=== PATIENT | male | born 1970 | race Caucasian/White ===

== ENCOUNTER 2018-05-12 11:49 | Inpatient (IN) ==
--- NOTE | 2018-05-12 13:18 | Emergency Department Note ---
Disposition Clinical Impression: Wound of foot Disposition: Admitted As Inpatient Condition: Good Referrals: NONE,PCP [Primary Care Provider] - Forms: ED Satisfaction Letter Time of Disposition: 17:08 General Adult HPI - General Chief complaint: ED Extremity Problem,Nontraumatic Stated complaint: Right foot infection Time Seen by Provider: 05/12/18 13:15 Source: patient Mode of arrival: ambulatory Limitations: no limitations Nursing Notes Reviewed: Yes Vital Signs Reviewed: Yes - History of Present Illness HPI Narrative: Male patient presenting to emergency department with a nonhealing lesion to the dorsal aspect of his right foot. Patient states this is been going on since Friday that is 3 days ago. He was seen at urgent care for this. Initially started as swelling to his right foot. He does have a history of diabetes that is not managed. He does not have a primary care physician. This is type 2 diabetes. He was placed on Bactrim and Keflex at the urgent care. He has been taking this as prescribed. States the swelling has went down however the area to the top of his foot is now black. He denies any fevers or chills. States he otherwise feels well. Has no history of trauma or bites to this area. He stat es that there were some pustules that showed up and now the area started turning black. He does have a series of pictures on his phone. He denies any fevers chills or coughs or colds. He has been using washclothes with warm water and eposom salts to the area. Pain Scale: 3 - Related Data Home Medications Medication Instructions Recorded Confirmed Acid Slot Floor Attendant 05/04/18 Ibuprofen 05/04/18 Sulfamethoxazole/Trimeth DS 1 tab PO BID 05/12/18 05/12/18 [Bactrim DS] Previous Rx's Medication Instructions Recorded Cephalexin [Keflex] 500 mg PO QID #40 capsule 05/04/18 Allergies Allergy/AdvReac Type Severity Reaction Status Date / Time No Known Allergies Allergy Verified 05/12/18 14:38 All systems ED: reviewed and negative except as stated. Review of Systems: As Per HPI Constitutional: Denies: fever, chills ENT ED: Denies: congestion Cardiovascular: Denies: chest pain, palpitations, syncope Respiratory: Denies: cough, dyspnea Gastrointestinal: Denies: abdominal pain, nausea, vomiting, diarrhea, hematemesis, melena Genitourinary: Denies: urgency, dysuria, frequency, hematuria Musculoskeletal: Denies: back pain, neck pain Integumentary: Reports: lesions (to right foot. Pt reports that the swelling is getting better, however it is now black). Denies: rash Neurological: Denies: headache, weakness Past Medical History - Past Medical History Attestation: Yes The following information was validated with the patient. Source: patient Medical history: Reports: diabetes, other Psychiatric history: Reports: no psych history - Social History Smoking Status: Current every day smoker Smokeless Tobacco Status: No Alcohol use: Reports: none Drug use: Reports: none Physical Exam - General Limitations: no limitations General appearance: alert, in no apparent distress - Head Head exam: atraumatic, normocephalic, normal inspection - Eye Eye exam: Present: normal appearance, PERRL, EOMI - ENT ENT exam: normal exam, normal oropharynx, mucous membranes moist - Neck Neck exam: Present: normal inspection, full ROM, trachea midline - Chest Chest inspection: Present: normal inspection, symmetric chest wall rise - Respiratory Respiratory exam: Present: normal lung sounds bilaterally. Absent: respiratory distress, accessory muscle use - Cardiovascular Cardiovascular exam: Present: regular rate, normal rhythm, normal heart sounds - Abdominal Exam Abdominal exam: Present: soft, Non-Tender. Absent: tenderness, distention, guarding, rebound, rigidity, organomegaly - Expanded Upper Extremity Exam Shoulder exam: Present: normal inspection, full ROM Arm exam: Present: normal inspection, full ROM Elbow exam: Present: normal inspection, full ROM Forearm/Wrist exam: Present: normal inspection, full ROM Hand exam: Present: normal inspection, full ROM Vascular exam: Normal: capillary refill, radial pulse - Expanded Lower Extremity Exam Hip/Pelvis exam: Present: normal inspection, full ROM Upper leg exam: Present: normal inspection, full ROM Knee exam: Present: normal inspection, full ROM Lower leg exam: Present: normal inspection, full ROM Ankle exam: Present: normal inspection, full ROM Foot/toe exam: Present: full ROM, other (Eschar region to the dorsal aspect of his right foot. Cellulitic appearance to a larger area extending up to his ankle. Has a sharp demarcation at the MCPs of his toes. Toes to have a delayed capillary refill however they are not cold. They are warm. Do not have a la appearance.) Neurovascular/Tendon exam: Absent: motor deficit, sensory deficit, tendon deficit - Neurological Exam Neurological exam: Present: alert, oriented X3 - Psychiatric Psychiatric exam: Present: normal affect, normal mood - Skin Skin exam: Present: warm, dry Course Course Narrative: Patient with a nonhealing wound to the dorsal aspect of the right foot with eschar material who has not responded well to by mouth antibiotics and has a history of diabetes presenting to the emergency department. CT does show some subcutaneous air however this does not appear to track on the fascial plane. We will admit patient to the hospital on IV antibiotics. We did cover him for possible Pseudomonas with Zosyn and vancomycin. I spoke with the hospitalist. The patient is agreeable to admission at this time. Vitals are stable. - Consultations Consultation #1: Dr Matias accepted Pt in stable condition. Time: 17:03 Vital Signs Temperature 98.7 F 05/12/18 11:58 Pulse Rate 98 05/12/18 11:58 Respiratory Rate 18 05/12/18 11:58 Blood Pressure 136/92 05/12/18 11:58 O2 Sat by Pulse Oximetry 95 05/12/18 11:58 Temperature 98.7 F 05/12/18 11:58 Pulse Rate 76 05/12/18 16:26 Respiratory Rate 16 05/12/18 16:26 Blood Pressure 120/89 05/12/18 16:26 O2 Sat by Pulse Oximetry 97 05/12/18 16:26 Oxygen Delivery Oxygen Delivery Room Air Medical Decision Making - Medical Records Medical records reviewed: Yes I reviewed the patient's medical records. - Lab Data Lab results reviewed: Yes I reviewed the patient's lab results. Result diagrams: 05/12/18 13:52 05/12/18 13:52 Lab Results 05/12/18 05/12/18 05/12/18 Range/Units 13:52 13:52 13:52 WBC 10.8 (4.3-11.1) K/mcL RBC 5.98 H (4.19-5.50) M/mcL Hgb 16.8 (12.9-16.9) g/dL Hct 49.8 (37.5-50.1) % MCV 83.3 (83.0-100.0) fL MCH 28.1 (28.0-33.3) pg MCHC 33.7 (31.6-35.5) g/dL RDW 11.5 (11.5-14.5) % Plt Count 378 (140-400) K/mcL MPV 10.0 (9.4-12.4) fL Immature Gran % 0.9 (0-4) % Seg Neutrophils % 69.5 % Lymphocytes % 19.4 % Monocytes % 7.4 % Eosinophils % 1.9 % Basophils % 0.9 % Neutrophils # 7.5 (1.6-8.9) K/mcL Lymphocytes # 2.1 (0.6-4.6) K/mcL Monocytes # 0.8 (0.0-1.3) K/mcL Eosinophils # 0.2 (0.0-0.6) K/mcL Basophils # 0.1 (0.0-0.2) K/mcL PT 12.9 H (9.4-12.1) Seconds INR 1.1 APTT 38.7 H (26.0-36.0) Seconds Sodium 136 (136-145) mEq/L Potassium 4.2 (3.5-5.1) mEq/L Chloride 100 (98-107) mEq/L Carbon Dioxide 24 (23-29) mEq/L BUN 10 (6-20) mg/dL Creatinine 0.73 (0.70-1.30) mg/dL Est GFR ( Amer) > 60 (> 60) Est GFR (Non-Af Amer) > 60 (> 60) BUN/Creatinine Ratio 14 (6-26) Glucose 254 H (70-105) mg/dL Calculated Osmolality 290 (280-300) Lactic Acid (0.5-2.2) mmol/L Calcium 9.8 (8.6-10.3) mg/dL Phosphorus 3.2 (2.7-4.5) mg/dL Magnesium 2.2 (1.6-2.6) mg/dL Total Bilirubin 0.4 (0.3-1.0) mg/dL Direct Bilirubin 0.1 (0.0-0.2) mg/dL Indirect Bilirubin 0.3 (0.0-1.2) mg/dL AST 13 (13-39) Units/L ALT 19 (7-52) Units/L Alkaline Phosphatase 127 H (34-104) Units/L Troponin I < 0.03 (< 0.04) ng/mL Serum Total Protein 8.9 (6.4-8.9) g/dL Albumin 4.8 (3.5-5.7) g/dL Globulin 4.1 H (2.4-3.5) g/dL Albumin/Globulin Ratio 1.2 (1.1-2.2) Urine Color (Yellow) Urine Clarity (Clear) Urine pH (5.0-8.0) pH Units Ur Specific Stem (1.010-1.025) Urine Protein (Neg-Trace) mg/dL Urine Glucose (UA) (Normal) mg/dL Urine Ketones (Negative) mg/dL Urine Blood (Negative) Urine Nitrite (Negative) Urine Bilirubin (Negative) Urine Urobilinogen (Normal) mg/dL Ur Leukocyte Esterase (Negative) Ur Culture Indicated? (NO) 05/12/18 05/12/18 Range/Units 13:52 14:05 WBC (4.3-11.1) K/mcL RBC (4.19-5.50) M/mcL Hgb (12.9-16.9) g/dL Hct (37.5-50.1) % MCV (83.0-100.0) fL MCH (28.0-33.3) pg MCHC (31.6-35.5) g/dL RDW (11.5-14.5) % Plt Count (140-400) K/mcL MPV (9.4-12.4) fL Immature Gran % (0-4) % Seg Neutrophils % % Lymphocytes % % Monocytes % % Eosinophils % % Basophils % % Neutrophils # (1.6-8.9) K/mcL Lymphocytes # (0.6-4.6) K/mcL Monocytes # (0.0-1.3) K/mcL Eosinophils # (0.0-0.6) K/mcL Basophils # (0.0-0.2) K/mcL PT (9.4-12.1) Seconds INR APTT (26.0-36.0) Seconds Sodium (136-145) mEq/L Potassium (3.5-5.1) mEq/L Chloride (98-107) mEq/L Carbon Dioxide (23-29) mEq/L BUN (6-20) mg/dL Creatinine (0.70-1.30) mg/dL Est GFR ( Amer) (> 60) Est GFR (Non-Af Amer) (> 60) BUN/Creatinine Ratio (6-26) Glucose (70-105) mg/dL Calculated Osmolality (280-300) Lactic Acid 1.5 (0.5-2.2) mmol/L Calcium (8.6-10.3) mg/dL Phosphorus (2.7-4.5) mg/dL Magnesium (1.6-2.6) mg/dL Total Bilirubin (0.3-1.0) mg/dL Direct Bilirubin (0.0-0.2) mg/dL Indirect Bilirubin (0.0-1.2) mg/dL AST (13-39) Units/L ALT (7-52) Units/L Alkaline Phosphatase (34-104) Units/L Troponin I (< 0.04) ng/mL Serum Total Protein (6.4-8.9) g/dL Albumin (3.5-5.7) g/dL Globulin (2.4-3.5) g/dL Albumin/Globulin Ratio (1.1-2.2) Urine Color Yellow (Yellow) Urine Clarity Clear (Clear) Urine pH 6.5 (5.0-8.0) pH Units Ur Specific Stem 1.020 (1.010-1.025) Urine Protein Negative (Neg-Trace) mg/dL Urine Glucose (UA) 500 H (Normal) mg/dL Urine Ketones Negative (Negative) mg/dL Urine Blood Negative (Negative) Urine Nitrite Negative (Negative) Urine Bilirubin Negative (Negative) Urine Urobilinogen 2.0 H (Normal) mg/dL Ur Leukocyte Esterase Negative (Negative) Ur Culture Indicated? NO (NO) - Radiology Data Radiology results reviewed: Yes I reviewed the patient's radiology results. Foot CT 05/12/18 13:48 IMPRESSION: Dorsal soft tissue swelling with a small amount of subcutaneous air. No focal drainable fluid collection. No definite osteomyelitis. D/ / 05/12/2018 17:02:21 Adrian Baum MD / lgray Interpreting Provider: Adrian Baum MD - EKG Data EKG #1 EKG attestation: Yes I reviewed and interpreted this EKG. EKG results narrative: Normal sinus rhythm at a rate 88. AL interval is 150. QRS duration is 81. QT is 362. QTC is 438. No signs of acute ischemia. No signs of WPW or Onqmf-Auxtfbuuv-Jcnhd syndrome no previous EKG to compare to. Attestation Statement - Attestation Attestation: I, Lowell Donohue, examined this patient and my medical decision-making was reviewed with the ADMINISTRATOR OF HOME HEALTH/PA/Advanced Practice Nurse/Resident Physician. I agree with the documented findings, disposition and treatment plan as described except to the extent set forth below. 47-year-old male presents emergency Department with concerns of infection to the right dorsum foot. Patient states he had severe swelling and erythema to the right foot and ankle. He was seen at an urgent care and given Bactrim and Keflex. He spent using warm washcloths with Epsom salts to help "bring out the infection". He has had some improvement of his symptoms however now he has a area of ulceration and blackened skin on the dorsum of the foot. He denies fever, chills, nausea, vomiting. He has a history of previous diabetes mellitus prior to losing 100 pounds. We will obtain laboratory evaluation and imaging of the right foot however patient will likely require admission to the hospital further care and evaluation of his dorsum right foot and possible debridement.
[2018-05-12] MEDS ORDERED: Piperacillin/Tazobactam 3.375 GM in Water for inj. (sterile) 20 ML 20 ML IVP ONE (13:25)
[2018-05-12] MEDS ORDERED: 0.9 % Sodium Chloride 1,000 ML IVC ONE (13:25)
[2018-05-12] MEDS ORDERED: Isovue-370 500 ML INFUS..BTL IV ONE (13:48)
[2018-05-12 14:08] LABS: Basophils # 0.1 K/mcL (0.0-0.2); Basophils % 0.9 %; Eosinophils # 0.2 K/mcL (0.0-0.6); Eosinophils % 1.9 %; Hematocrit 49.8 % (37.5-50.1); Hemoglobin 16.8 g/dL (12.9-16.9); Immature Granulocytes % 0.9 % (0-4); Lymphocytes # 2.1 K/mcL (0.6-4.6); Lymphocytes % 19.4 %; Mean Corpuscular HGB Conc 33.7 g/dL (31.6-35.5); Mean Corpuscular Hemoglobin 28.1 pg (28.0-33.3); Mean Corpuscular Volume 83.3 fL (83.0-100.0); Monocytes # 0.8 K/mcL (0.0-1.3); Monocytes % 7.4 %; Neutrophils # 7.5 K/mcL (1.6-8.9); Platelet Count 378 K/mcL (140-400); Red Blood Count 5.98 M/mcL (4.19-5.50); Red Cell Distribution Width 11.5 % (11.5-14.5); Segmented Neutrophils % 69.5 %
[2018-05-12 14:14] LABS: Bilirubin,Urine Negative (Negative); Blood,Urine Negative (Negative); Clarity,Urine Clear (Clear); Color,Urine Yellow (Yellow); Glucose,Urine (UA) 500 mg/dL (Normal); Ketones,Urine Negative (Negative); Leukocyte Esterase,Urine Negative (Negative); Nitrite,Urine Negative (Negative); PH,Urine 6.5 pH Units (5.0-8.0); Protein,Urine Negative (Neg-Trace)
[2018-05-12 14:17] LABS: INR 1.1; Prothrombin Time 12.9 Seconds (9.4-12.1)
[2018-05-12 14:19] LABS: Activated Partial Thrombo Time 38.7 Seconds (26.0-36.0)
[2018-05-12 14:29] LABS: Troponin I < 0.03 ng/mL (< 0.04)
[2018-05-12 14:57] LABS: Alanine Aminotransferase 19 Units/L (7-52); Albumin 4.8 g/dL (3.5-5.7); Albumin/Globulin Ratio 1.2 (1.1-2.2); Alkaline Phosphatase 127 Units/L (34-104); Aspartate Amino Transferase 13 Units/L (13-39); BUN/Creatinine Ratio 14 (6-26); Bilirubin,Direct 0.1 mg/dL (0.0-0.2); Bilirubin,Indirect 0.3 mg/dL (0.0-1.2); Bilirubin,Total 0.4 mg/dL (0.3-1.0); Blood Urea Nitrogen 10 mg/dL (6-20); Calcium 9.8 mg/dL (8.6-10.3); Carbon Dioxide 24 mEq/L (23-29); Chloride 100 mEq/L (98-107); Globulin 4.1 g/dL (2.4-3.5); Glucose 254 mg/dL (70-105); Magnesium 2.2 mg/dL (1.6-2.6); Osmolality,Calculated 290 (280-300); Phosphorous 3.2 mg/dL (2.7-4.5); Potassium 4.2 mEq/L (3.5-5.1); Sodium 136 mEq/L (136-145); Total Protein 8.9 g/dL (6.4-8.9); eGFR For Non-African Americans > 60 (> 60)
[2018-05-12] MEDS ORDERED: Naloxone 0.4 MG/ML INJ IVP PRN (17:30)
--- NOTE | 2018-05-12 17:30 | Internal Med History&Physical ---
Date of Encounter: 05/12/18 Time of Encounter: 17:28 Internal Medicine - H&P: HPI Chief complaint: Foot infection History of present illness: Mr. Trevizo is a 47 year old male who presented with a nonhealing lesion to the dorsal aspect of his right foot that failed outpatient antibiotics with Bactrim and Keflex that he was prescribed at urgent care. He does have a history of diabetes but he is not on any meds. He denies any fevers chills. CT scan was ordered and pending. The patient was admitted for further evaluation. Past Med Surg Social Fam HX - Past Medical History Medical history: diabetes, other Additional medical history: MARSA Psychiatric history: no psych history - Past Surgical History Additional surgical history: thumb elbow - Social History Smoking Status: Current every day smoker Smokeless Tobacco Status: No Alcohol use: none Drug use: none Internal Medicine - H&P: Meds Cephalexin [Keflex] 500 mg PO QID #40 capsule 05/04/18 [Rx] Ibuprofen [Ibu-200] 400 mg PO Q6H PRN 05/04/18 [History] Ranitidine HCl [Acid Specialty Department Supervisor] 150 mg PO DAILY PRN 05/04/18 [History] Sulfamethoxazole/Trimeth DS [Bactrim DS] 1 tab PO BID 05/12/18 [History] Allergy/AdvReac Type Severity Reaction Status Date / Time No Known Allergies Allergy Verified 05/12/18 14:38 All Systems PM: A 10-system review of systems was performed and is negative for pertinent findings except as documented above in the HPI. - Constitutional Constitutional: no chills, no fever(s), no night sweats - Cardiovascular Cardiovascular ROS IM: no chest pain, no diaphoresis, no dyspnea, no lightheadedness, no palpitations, no syncope - Respiratory Respiratory: no cough, no dyspnea, no wheezing, no excessive phlegm production - Gastrointestinal Gastrointestinal: no abdominal pain, no diarrhea, no hematemesis, no hematochezia, no melena, no nausea, no vomiting - Neurological Neurological ROS: no confusion, no convulsions, no focal weakness, no numbness, no tingling, no tremor(s) - Constitutional Vitals: Temp Pulse Resp BP Pulse Ox 98.7 F 76 16 120/89 97 05/12/18 11:58 05/12/18 16:26 05/12/18 16:26 05/12/18 16:26 05/12/18 16:26 General appearance: Present: A&O X 3 Exam: awake - Head Head exam: Present: atraumatic, normocephalic - Neck Neck exam general surgery: Present: supple, trachea midline. Absent: lymphadenopathy - Respiratory Respiratory exam: Present: CTAB. Absent: accessory muscle use, rales, rhonchi, wheezes - Cardiovascular Cardiovascular exam: Present: RRR, +S1, +S2. Absent: diastolic murmur, gallop, rubs, systolic murmur - GI/Abdominal GI/Abdominal exam: Present: normal bowel sounds, soft, no peritoneal signs. Absent: distended, tenderness - Extremities Exam Extremities exam: Present: warm, radial pulses palpable and symmetrical. Absent : calf tenderness, cyanotic, pedal edema Internal Med - H&P Results - Labs CBC & Chem 7: 05/18/18 05:05 05/18/18 05:05 Labs: Short CBC 05/12/18 Range/Units 13:52 WBC 10.8 (4.3-11.1) K/mcL Hgb 16.8 (12.9-16.9) g/dL Hct 49.8 (37.5-50.1) % Plt Count 378 (140-400) K/mcL Neutrophils # 7.5 (1.6-8.9) K/mcL BMP 05/12/18 13:52 Sodium 136 Potassium 4.2 Chloride 100 Carbon Dioxide 24 BUN 10 Creatinine 0.73 Glucose 254 H Calcium 9.8 Cardiac Enzymes 05/12/18 Range/Units 13:52 Troponin I < 0.03 (< 0.04) ng/mL Liver Function 05/12/18 Range/Units 13:52 Total Bilirubin 0.4 (0.3-1.0) mg/dL Direct Bilirubin 0.1 (0.0-0.2) mg/dL AST 13 (13-39) Units/L ALT 19 (7-52) Units/L Alkaline Phosphatase 127 H (34-104) Units/L Albumin 4.8 (3.5-5.7) g/dL Urine 05/12/18 Range/Units 14:05 Urine Color Yellow (Yellow) Urine Clarity Clear (Clear) Urine pH 6.5 (5.0-8.0) pH Units Ur Specific [place] 1.020 (1.010-1.025) Urine Protein Negative (Neg-Trace) mg/dL Urine Glucose (UA) 500 H (Normal) mg/dL - Impressions ITS Impressions Foot CT 05/12/18 13:48 IMPRESSION: Dorsal soft tissue swelling with a small amount of subcutaneous air. No focal drainable fluid collection. No definite osteomyelitis. D/ / 05/12/2018 17:02:21 Adrian Baum MD / lgray Interpreting Provider: Adrian Baum MD - Assessment and plan (1) Wound of foot Current Visit: Yes Status: Acute Assessment and plan: -Blood cx x 2 -CBCD, BMP in AM -Tylenol 650 mg PO q 4-6 hr PRN pain/fever -Home meds -Heparin 5000 U SQ BID (2) Diabetes mellitus Current Visit: Yes Status: Chronic Assessment and plan: We will obtain HGB A1C, starting insulin sliding scale. Qualifiers: Diabetes mellitus type: type 2 Diabetes mellitus shelter insulin use: without regional intermodal truck driver use Diabetes mellitus complication status: with skin complications Diabetes mellitus complication detail: with foot ulcer Qualified Code(s): E11.621 - Type 2 diabetes mellitus with foot ulcer; L97.509 - Non-pressure chronic ulcer of other part of unspecified foot with unspecified severity - Time Spent With Patient Total time spent is greater than 50% in coordination of care (as documented) at patient's floor/unit and/or counseling patient:
[2018-05-12 18:19] LABS: INR 1.2; Prothrombin Time 13.2 Seconds (9.4-12.1)
[2018-05-12 18:29] LABS: Chol/HDL Ratio 4.8 (0-4.9)
[2018-05-12] MEDS: 0.9 % Sodium Chloride 1,000 ML IVC SCH (19:48)
[2018-05-12] MEDS: *HR* Heparin 5,000 UNIT/ML VIAL SQ SCH (19:48)
[2018-05-13] MEDS: Piperacillin/Tazobactam 3.375 GM in 0.9 % Sodium Chloride Mini Bag 100 ML IVPB SCH ×3 (01:46→16:33)
[2018-05-13] MEDS: 0.9 % Sodium Chloride 1,000 ML IVC SCH (04:03)
[2018-05-13] MEDS: *HR* Heparin 5,000 UNIT/ML VIAL SQ SCH ×2 (04:50→18:21)
[2018-05-13 06:01] LABS: Basophils # 0.1 K/mcL (0.0-0.2); Eosinophils # 0.2 K/mcL (0.0-0.6); Eosinophils % 2.4 %; Hematocrit 41.4 % (37.5-50.1); Immature Granulocytes % 1.2 % (0-4); Lymphocytes # 2.9 K/mcL (0.6-4.6); Mean Corpuscular HGB Conc 33.8 g/dL (31.6-35.5); Mean Corpuscular Hemoglobin 28.2 pg (28.0-33.3); Mean Corpuscular Volume 83.3 fL (83.0-100.0); Monocytes # 0.8 K/mcL (0.0-1.3); Monocytes % 8.4 %; Neutrophils # 5.3 K/mcL (1.6-8.9); Platelet Count 349 K/mcL (140-400); Red Blood Count 4.97 M/mcL (4.19-5.50); Red Cell Distribution Width 11.6 % (11.5-14.5)
[2018-05-13 06:21] LABS: Alanine Aminotransferase 16 Units/L (7-52); Albumin 3.7 g/dL (3.5-5.7); Albumin/Globulin Ratio 1.2 (1.1-2.2); Alkaline Phosphatase 102 Units/L (34-104); Aspartate Amino Transferase 10 Units/L (13-39); BUN/Creatinine Ratio 13 (6-26); Bilirubin,Total 0.3 mg/dL (0.3-1.0); Blood Urea Nitrogen 9 mg/dL (6-20); Calcium 8.7 mg/dL (8.6-10.3); Carbon Dioxide 27 mEq/L (23-29); Chloride 100 mEq/L (98-107); Globulin 3.1 g/dL (2.4-3.5); Glucose 320 mg/dL (70-105); Magnesium 1.9 mg/dL (1.6-2.6); Osmolality,Calculated 289 (280-300); Phosphorous 3.2 mg/dL (2.7-4.5); Potassium 4.2 mEq/L (3.5-5.1); Sodium 134 mEq/L (136-145); Total Protein 6.8 g/dL (6.4-8.9); eGFR For Non-African Americans > 60 (> 60)
[2018-05-13 08:23] LABS: Estimated Average Glucose 237 mg/dl; Hemoglobin A1C 9.9 %
--- NOTE | 2018-05-13 09:15 | Electrocardiograph Report ---
[facility] [employer] [facility] Test Date: 2018-05-12 Pat Name: Chris Trevizo Department: [id number] Room: [facility] Gender: M Architectural Draftsman: : 1970 Requested By: Radha Chatterjee Order Number: [id number] Reading MD: Andi Betancourt Measurements Intervals [place] Rate: 88 P: 43 [place]: 150 QRS: 38 QRSD: 81 T: 52 QT: 362 QTc: 438 Interpretive Statements Sinus rhythm Electronically Signed On 05-13-2018 9:13:47 EDT by Andi Betancourt
[2018-05-13] MEDS ORDERED: Dextrose Gel 15 GM/37.5 ML TUBE PO PRN ×2 (09:26)
[2018-05-13] MEDS ORDERED: D5% in Water 1,000 ML IVC PRN (09:26)
[2018-05-13] MEDS ORDERED: *HR* Dextrose 50 % in Water (Syg) 50 ML SYRINGE IVP PRN (09:26)
--- NOTE | 2018-05-13 09:29 | Internal Med Progress Note ---
<Serenity Medina Santy - Last Filed: 05/13/18 13:52> Hospitalist Progress Note - Encounter Date of Encounter: 05/13/18 Time of Encounter: 09:21 - Subjective Interval History: 47M with PMH uncontrolled DM presenting with non-healing ulcer of dorsal aspect of R Foot, CT showed some SubQ air but not in fascial plane, admitted for IV Abx after failure of outpt mgmt. On Vanc and zosyn. WBC 10.8 yesterday, 9.4 today. Followed by podiatry that plans to take him to the OR for I&D with debridement tomorrow, NPO after breakfast tomorrow. Glucose 320, A1c 9.9. Start low dose SQ insulin, diabetes education, monitor sugars, adjust insulin regiment as necessary. Needs referral for PCP at D/C. - Exam Vitals: Temp Pulse Resp BP Pulse Ox 97.8 F 76 18 128/76 98 05/13/18 06:31 05/13/18 06:31 05/13/18 06:31 05/13/18 06:31 05/13/18 06:31 Exam: General: A&O x 3. No acute distress. Well developed, well nourished Obese male Head: atraumatic, normocephalic. ENT: No conjunctival injection, no scleral icterus. PERRLA. EOMI. Oropharynx non- erythematous. mucous membranes moist. Neuro: No focal deficits, no speech deficit, no facial droop, mentating well. Pulm: Lungs CTAB A/P. No wheezes, rales, ronchi. Cardio: RRR no m/r/g. Chest not tender to palpation. Abd: Soft, non-distended. Normoactive bowel sounds. Non-tender to palpation. No guarding. Non rigid. Extremities:Rt foot bandaged recently by podiatry, left extremity without w ounds, edema, erythema Skin: warm, dry, intact. No rashes with exception of right foot wound Psych: Appropriate mood and affect. Answers questions appropriately. Cooperative with exam. - Assessment and Plan (1) Wound of foot Current Visit: Yes Status: Acute Assessment and Plan: Followed by podiatry, pods plans to take him to the OR to do I&D with mikael woodard tomorrow - on Vanc & Zosyn now (2) Diabetes mellitus Current Visit: Yes Status: Acute Assessment and Plan: Pt was dx "several years ago" and lost 100lbs so then thought he was no longer DM and has not been checking sugars - a1c 9.9 - start low dose correction schedule, adjust for tight glucose control to keep sugars 100-150 - diabetic education - referral for outpatient PCP to establish and manage care DVT Prophylaxis: heparin 5000u SQ Q12 - Time Spent with Patient Total time spent is greater than 50% in coordination of care (as documented) at patient's floor/unit and/or counseling patient: less than 15 minutes Plan of Care Discussed with: family Internal Medicine: Result - Labs CBC & Chem 7: 05/13/18 05:26 05/13/18 05:26 Labs: Short CBC 05/12/18 05/13/18 Range/Units 13:52 05:26 WBC 10.8 9.4 (4.3-11.1) K/mcL Hgb 16.8 14.0 D (12.9-16.9) g/dL Hct 49.8 41.4 (37.5-50.1) % Plt Count 378 349 (140-400) K/mcL Neutrophils # 7.5 5.3 (1.6-8.9) K/mcL BMP 05/12/18 05/13/18 13:52 05:26 Sodium 136 134 L Potassium 4.2 4.2 Chloride 100 100 Carbon Dioxide 24 27 BUN 10 9 Creatinine 0.73 0.68 L Glucose 254 H 320 H Calcium 9.8 8.7 Cardiac Enzymes 05/12/18 Range/Units 13:52 Troponin I < 0.03 (< 0.04) ng/mL Liver Function 05/12/18 05/13/18 Range/Units 13:52 05:26 Total Bilirubin 0.4 0.3 (0.3-1.0) mg/dL Direct Bilirubin 0.1 (0.0-0.2) mg/dL AST 13 10 L (13-39) Units/L ALT 19 16 (7-52) Units/L Alkaline Phosphatase 127 H 102 (34-104) Units/L Albumin 4.8 3.7 (3.5-5.7) g/dL Urine 05/12/18 Range/Units 14:05 Urine Color Yellow (Yellow) Urine Clarity Clear (Clear) Urine pH 6.5 (5.0-8.0) pH Units Ur Specific [place] 1.020 (1.010-1.025) Urine Protein Negative (Neg-Trace) mg/dL Urine Glucose (UA) 500 H (Normal) mg/dL - ABG Interpretation ABG results: PT/INR, D-dimer PT 13.2 Seconds (9.4-12.1) H 05/12/18 17:58 - Impressions Impressions Foot CT 05/12/18 13:48 IMPRESSION: Dorsal soft tissue swelling with a small amount of subcutaneous air. No focal drainable fluid collection. No definite osteomyelitis. D/ / 05/12/2018 17:02:21 Adrian Baum MD / [email or web address] Interpreting Provider: Adrian Baum MD Consult Discharge Plan - Plan Referrals: NONE,PCP [Primary Care Provider] - <Praneeth Barker - Last Filed: 05/13/18 18:36> Hospitalist Progress Note - Exam Vitals: Temp Pulse Resp BP Pulse Ox 98.2 F 75 16 133/89 95 05/13/18 16:12 05/13/18 16:12 05/13/18 16:12 05/13/18 16:12 05/13/18 16:12 - Assessment and Plan (1) Cellulitis of right foot Current Visit: Yes Status: Acute (2) Wound of foot Current Visit: Yes Status: Acute (3) Diabetes mellitus Current Visit: Yes Status: Acute - Time Spent with Patient Total time spent is greater than 50% in coordination of care (as documented) at patient's floor/unit and/or counseling patient: Internal Medicine: Result - Labs CBC & Chem 7: 05/13/18 05:26 05/13/18 05:26 Labs: Short CBC 05/13/18 Range/Units 05:26 WBC 9.4 (4.3-11.1) K/mcL Hgb 14.0 D (12.9-16.9) g/dL Hct 41.4 (37.5-50.1) % Plt Count 349 (140-400) K/mcL Neutrophils # 5.3 (1.6-8.9) K/mcL BMP 05/13/18 05:26 Sodium 134 L Potassium 4.2 Chloride 100 Carbon Dioxide 27 BUN 9 Creatinine 0.68 L Glucose 320 H Calcium 8.7 Liver Function 05/13/18 Range/Units 05:26 Total Bilirubin 0.3 (0.3-1.0) mg/dL AST 10 L (13-39) Units/L ALT 16 (7-52) Units/L Alkaline Phosphatase 102 (34-104) Units/L Albumin 3.7 (3.5-5.7) g/dL - ABG Interpretation ABG results: PT/INR, D-dimer PT 13.2 Seconds (9.4-12.1) H 05/12/18 17:58 - Attending Attestation I examined this patient and my medical decision-making was reviewed with the Resident Physician on 05/13/18. I agree with the documented findings, disposition and treatment plan as described except to the extent set forth below. Mr Trevizo is currently admitted for cellulitis R foot. He remains moderate to high risk due to potential for worsening clinical status. Mr Trevizo is doing OK at this time. No fever or chills. No CP or SOB. No pain in his foot. Exam alert Comfortable Mucus membranes dry Heart reg No wheeze abd soft R foot with dark eschar and erythema I/P 1. Cellulitis R foot - IV abx, podiatry 2. DM Further diagnoses and plan as above. <Serenity Medina - Last Filed: 05/13/18 13:52> (2) Diabetes mellitus Qualifiers: Diabetes mellitus type: type 2 Diabetes mellitus fpc insulin use: without fpc use Diabetes mellitus complication status: with unspecified complications Qualified Code(s): E11.8 - Type 2 diabetes mellitus with unspecified complications; L97.509 - Non-pressure chronic ulcer of other part of unspecified foot with unspecified severity <Praneeth Barker - Last Filed: 05/13/18 18:36> (3) Diabetes mellitus Qualifiers: Diabetes mellitus type: type 2 Diabetes mellitus exterminator helper termite insulin use: without exterminator helper termite use Diabetes mellitus complication status: with skin complications Diabetes mellitus complication detail: with foot ulcer Qualified Code(s): E11.621 - Type 2 diabetes mellitus with foot ulcer; L97.509 - Non-pre ssure chronic ulcer of other part of unspecified foot with unspecified severity
--- NOTE | 2018-05-13 10:17 | Podiatry Consult Note ---
Date of Encounter: 05/13/18 Time of Encounter: 09:58 Assessment and Plan (1) Wound of foot Current visit: Yes Status: Acute Large wound noted to right dorsal foot Measuring 2 inches wide by 3 inches long, eschar noted, erythema noted to outlying wound bed, edema 2/4 to right malleolus and pedal area. Covered with Betadine, Adaptic, dry gauze, and Kerlix. Secured with paper tape. Plan to go to the OR for I&D of wound tomorrow 05/14/18 Nothing by mouth after breakfast 05/14/18 Surgery consent on chart (2) Diabetes mellitus Current visit: Yes Status: Acute HGB A1c 9.9 Recommend tight glycemic control Primary to manage Qualifiers: Diabetes mellitus type: type 2 Diabetes mellitus medical laboratory technical officer insulin use: without medical laboratory technical officer use Diabetes mellitus complication status: with unspecified complications Qualified Code(s): E11.8 - Type 2 diabetes mellitus with unspecified complications History of Present Illness HPI: Mr. Trevizo is a 47 year old male who presented last evening 05/12/18, to ED for right foot infection. PMH type 2 diabetes mellitus, chronic back/leg pain, lumbar DDD L4-5/S1, carpal tunnel, bilateral shoulder capsulitis, positive smoker 1/2 PPD. Denies alcohol or drug abuse. Patient denies any vascular or cardiac history. Denies any recent falls. Patient reports losing 100 pounds and therefore believed he was no longer diabetic. Due to this patient has not been checking blood glucose levels at home. Patient does not follow was primary care physician. Mr. Trevizo is a 47-year-old male who presented to urgent care on 05/04/18 for right foot pain, redness, and swelling. Patient was at that time diagnosed with cellulitis and given Bactrim, Keflex, and Diclophenac. Patient reports on 05/03/18 he woke up and put his shoe on in his foot and ankle were swollen. Denies any wounds or openings at that time. States going to . Patient reports placing Prid, a drawing salve, on foot to draw out any infection on 05/03. Reports white circles underneath skin, which he believed to be infection. Reports after placing drawing salve on skin he then began to place hot compresses with Epsom salt over area. Reports blood and clear fluid seeping from wound area. Reports placing compresses with Epsom salts 2-3 times a day. He then began to notice his skin was peeling. 3 days ago he began to notice luda kened areas and worsening redness. He denies fevers, chills, N/V/D. He denies pain or tingling. Reports numbness to right hallux. Denies any recent trauma to the area. Past Med Surg Social Fam HX - Past Medical History Medical history: diabetes, other Additional medical history: MARSA Psychiatric history: no psych history - Past Surgical History Additional surgical history: thumb elbow - Social History Smoking Status: Current every day smoker Packs per day: 1/2 Smokeless Tobacco Status: No Alcohol use: none Drug use: none Medications and Allergies Cephalexin [Keflex] 500 mg PO QID #40 capsule 05/04/18 [Rx] Ibuprofen [Ibu-200] 400 mg PO Q6H PRN 05/04/18 [History] Ranitidine HCl [Acid Straight Line Press Setter] 150 mg PO DAILY PRN 05/04/18 [History] Sulfamethoxazole/Trimeth DS [Bactrim DS] 1 tab PO BID 05/12/18 [History] Allergy/AdvReac Type Severity Reaction Status Date / Time No Known Allergies Allergy Verified 05/12/18 14:38 All Systems Reviewed: The remainder of the systems were reviewed and are negative Review of systems: Constitutional: Denies fever denies chills admits weight loss Cardiovascular: denies chest pain, denies shortness of breath Endocrine: Denies fatigue, Admits diabetes, Denies thyroid issues Musculoskeletal: Admits edema, Denies recent falls, Denies difficulty walking, Denies calf pain Neurologic: Admits numbness/tingling, Denies seizures, Denies weakness Integumentary: Admits warmth, Denies rash, Denies bruising - Constitutional Constitutional: no frequent falls - Cardiovascular Cardiovascular: leg edema, pedal edema, no chest pain, no dyspnea, no irregular heart rhythm, no leg ulcers - Respiratory Respiratory: no cough - Musculoskeletal Musculoskeletal: as per HPI, back pain, no abnormal gait Physical Exam - Constitutional Vitals: Temp Pulse Resp BP Pulse Ox 97.8 F 76 18 128/76 98 05/13/18 06:31 05/13/18 06:31 05/13/18 06:31 05/13/18 06:31 05/13/18 06:31 Exam: Constitiutional: Alert and oriented x 3. Vascular: 2/4 DP/PT bilaterally, CFT <3 sec to all digits, warm to warm from tibia to toes bilaterally, 2/4 edema noted to right pedal and ankle area. Neurologic: Positive light touch and pinprick test, normal plantar response, Normal position sense dorsiflexion/plantar flexion Dermatologic: Erythema noted to the dorsal aspect of foot, wound measuring 2" wide x 3" long, compressible with eschar noted. Musculoskeletal: 5/5 muscle strength and normal tone bilaterally. Results - Labs Result Diagrams: 05/13/18 05:26 05/13/18 05:26 Labs: Abnormal lab results PT 13.2 Seconds (9.4-12.1) H 05/12/18 17:58 Sodium 134 mEq/L (136-145) L 05/13/18 05:26 Creatinine 0.68 mg/dL (0.70-1.30) L 05/13/18 05:26 Glucose 320 mg/dL (70-105) H 05/13/18 05:26 Hemoglobin A1c 9.9 % (-5.6) H 05/13/18 05:26 AST 10 Units/L (13-39) L 05/13/18 05:26 HDL Cholesterol 26 mg/dL (40-59) L 05/12/18 17:58 Urine Glucose (UA) 500 mg/dL (Normal) H 05/12/18 14:05 Urine Urobilinogen 2.0 mg/dL (Normal) H 05/12/18 14:05 H & H 05/12/18 05/13/18 Range/Units 13:52 05:26 Hgb 16.8 14.0 D (12.9-16.9) g/dL Hct 49.8 41.4 (37.5-50.1) % All other labs normal. Consult Discharge Plan - Plan Referrals: NONE,PCP [Primary Care Provider] -
[2018-05-13] MEDS: Insulin LISPRO 300 UNITS/3 ML VIAL SQ SCH ×5 (14:36→21:15)
[2018-05-13] MEDS ORDERED: Ibuprofen 400 MG TABLET PO PRN (18:29)
[2018-05-13] MEDS: Insulin DETEMIR 100 UNIT/ML X5UNITS SQ SCH (20:20)
[2018-05-14] MEDS: Piperacillin/Tazobactam 3.375 GM in 0.9 % Sodium Chloride Mini Bag 100 ML IVPB SCH ×4 (00:16→23:37)
[2018-05-14 03:34] LABS: Basophils # 0.1 K/mcL (0.0-0.2); Basophils % 0.9 %; Eosinophils # 0.2 K/mcL (0.0-0.6); Eosinophils % 2.2 %; Hematocrit 40.2 % (37.5-50.1); Hemoglobin 13.9 g/dL (12.9-16.9); Immature Granulocytes % 0.8 % (0-4); Lymphocytes # 2.7 K/mcL (0.6-4.6); Lymphocytes % 28.4 %; Mean Corpuscular HGB Conc 34.6 g/dL (31.6-35.5); Mean Corpuscular Hemoglobin 28.5 pg (28.0-33.3); Mean Corpuscular Volume 82.4 fL (83.0-100.0); Mean Platelet Volume 9.9 fL (9.4-12.4); Monocytes # 0.6 K/mcL (0.0-1.3); Monocytes % 6.6 %; Neutrophils # 5.8 K/mcL (1.6-8.9); Platelet Count 351 K/mcL (140-400); Red Blood Count 4.88 M/mcL (4.19-5.50); Red Cell Distribution Width 11.7 % (11.5-14.5); Segmented Neutrophils % 61.1 %
[2018-05-14 03:41] LABS: INR 1.2; Prothrombin Time 13.3 Seconds (9.4-12.1)
[2018-05-14 03:53] LABS: BUN/Creatinine Ratio 11 (6-26); Blood Urea Nitrogen 7 mg/dL (6-20); Calcium 8.8 mg/dL (8.6-10.3); Carbon Dioxide 27 mEq/L (23-29); Chloride 102 mEq/L (98-107); Glucose 247 mg/dL (70-105); Osmolality,Calculated 290 (280-300); Potassium 3.6 mEq/L (3.5-5.1); Sodium 137 mEq/L (136-145); eGFR For Non-African Americans > 60 (> 60)
[2018-05-14] MEDS: *HR* Heparin 5,000 UNIT/ML VIAL SQ SCH ×2 (07:13→16:21)
[2018-05-14] MEDS: Insulin LISPRO 300 UNITS/3 ML VIAL SQ SCH ×4 (07:14→20:27)
--- NOTE | 2018-05-14 07:25 | Internal Med Progress Note ---
<Serenity Medina - Last Filed: 05/14/18 12:41> Hospitalist Progress Note - Encounter Date of Encounter: 05/14/18 Time of Encounter: 07:18 - Subjective Interval History: 47M with PMH uncontrolled DM presenting with non-healing ulcer of dorsal aspect of R Foot, CT showed some SubQ air but not in fascial plane, admitted for IV Abx after failure of outpt mgmt. On Vanc and zosyn. WBC 10.8 at admit, 9.6 today. Followed by podiatry that plans to take him to the OR for I&D with debridement today, NPO after breakfast. Added 10mg Levemir and low dose insulin yesterday, glucose yesterday 382-197. A1c at admit 9.9. Diabetes education, monitor sugars, adjust insulin regiment as necessary. Needs referral for PCP at D/C. - Exam Vitals: Temp Pulse Resp BP Pulse Ox 97.7 F 78 18 134/91 99 05/14/18 06:38 05/14/18 06:38 05/14/18 06:38 05/14/18 06:38 05/14/18 06:38 Exam: General: A&O x 3. No acute distress. Well developed, well nourished Obese male Head: atraumatic, normocephalic. ENT: No conjunctival injection, no scleral icterus. PERRLA. EOMI. Oropharynx non- erythematous. mucous membranes moist. Neuro: No focal deficits, no speech deficit, no facial droop, mentating well. Pulm: Lungs CTAB A/P. No wheezes, rales, ronchi. Cardio: RRR no m/r/g. Chest not tender to palpation. Abd: Soft, non-distended. Normoactive bowel sounds. Non-tender to palpation. No guarding. Non rigid. Extremities:Rt foot bandaged recently by podiatry, left extremity without wounds, edema, erythema Skin: warm, dry, intact. No rashes with exception of right foot wound Psych: Appropriate mood and affect. Answers questions appropriately. Cooperative with exam. - Assessment and Plan (1) Wound of foot Current Visit: Yes Status: Acute Assessment and Plan: -On Vanc/Zosyn - Podiatry following, plans to take him to OR for I&D with debridement today - goal glucose 100-150 (2) Diabetes mellitus Current Visit: Yes Status: Acute Assessment and Plan: -Pt was dx T2DM several years ago, then lost 100lbs and thought he did not have it anymore - A1c 9.9 at admit - Added low dose insulin and 10mg Levemir BID yesterday, sugars remain >150, change to medium dose correction today - diabetes education - referral for PCP at D/C DVT Prophylaxis: heparin 5000u SQ Q12 - Time Spent with Patient Total time spent is greater than 50% in coordination of care (as documented) at patient's floor/unit and/or counseling patient: less than 15 minutes Plan of Care Discussed with: patient Internal Medicine: Result - Labs CBC & Chem 7: 05/14/18 03:05 05/14/18 03:05 Labs: Short CBC 05/14/18 Range/Units 03:05 WBC 9.6 (4.3-11.1) K/mcL Hgb 13.9 (12.9-16.9) g/dL Hct 40.2 (37.5-50.1) % Plt Count 351 (140-400) K/mcL Neutrophils # 5.8 (1.6-8.9) K/mcL BMP 05/14/18 03:05 Sodium 137 Potassium 3.6 Chloride 102 Carbon Dioxide 27 BUN 7 Creatinine 0.62 L Glucose 247 H Calcium 8.8 - ABG Interpretation ABG results: PT/INR, D-dimer PT 13.3 Seconds (9.4-12.1) H 05/14/18 03:05 Consult Discharge Plan - Plan Referrals: NONE,PCP [Primary Care Provider] - <Praneeth Barker - Last Filed: 05/14/18 18:20> Hospitalist Progress Note - Exam Vitals: Temp Pulse Resp BP Pulse Ox 97.9 F 71 18 133/85 97 05/14/18 14:41 05/14/18 14:41 05/14/18 14:41 05/14/18 14:41 05/14/18 14:41 - Assessment and Plan (1) Cellulitis of right foot Current Visit: Yes Status: Acute (2) Wound of foot Current Visit: Yes Status: Acute (3) Diabetes mellitus Current Visit: Yes Status: Acute - Time Spent with Patient Total time spent is greater than 50% in coordination of care (as documented) at patient's floor/unit and/or counseling patient: Internal Medicine: Result - Labs CBC & Chem 7: 05/14/18 03:05 05/14/18 03:05 Labs: Short CBC 05/14/18 Range/Units 03:05 WBC 9.6 (4.3-11.1) K/mcL Hgb 13.9 (12.9-16.9) g/dL Hct 40.2 (37.5-50.1) % Plt Count 351 (140-400) K/mcL Neutrophils # 5.8 (1.6-8.9) K/mcL BMP 05/14/18 03:05 Sodium 137 Potassium 3.6 Chloride 102 Carbon Dioxide 27 BUN 7 Creatinine 0.62 L Glucose 247 H Calcium 8.8 - ABG Interpretation ABG results: PT/INR, D-dimer PT 13.3 Seconds (9.4-12.1) H 05/14/18 03:05 - Impressions Impressions Foot MRI 05/14/18 08:16 IMPRESSION: Negative study for osteomyelitis. Irregular elongated focal fluid collection in the superficial aspect of the dorsal foot with some internal gas compatible with abscess as above. Associated cellulitis to the dorsal foot. Mild muscle edema without significant enhancement to intrinsic musculature of the foot, predominantly the intraosseous muscles about the 2nd through 4th metatarsals. This may be reactive in nature or reflect nonspecific myositis. Early denervation changes could have a similar appearance. D/ / 05/14/2018 11:33:54 Steven Jensen MD / Briana Lynch Interpreting Provider: Steven Jensen MD Ankle X-Ray 05/14/18 08:29 IMPRESSION: Nonspecific soft tissue edema without gas collection. No radiographic features of osteomyelitis. D/ / 05/14/2018 09:19:46 Ezequiel Anaya MD / [facility] Interpreting Provider: Ezequiel Anaya MD Foot X-Ray 05/14/18 08:29 IMPRESSION: 1. Soft tissue swelling of the foot dorsum. No evidence of soft tissue gas or radiopaque foreign body. 2. No acute osseous abnormality or evidence of osteomyelitis. D/ / Barak Draper MD / Barak Draper MD Interpreting Provider: Barak Draper MD - Attending Attestation I examined this patient and my medical decision-making was reviewed with the Resident Physician on 05/14/18. I agree with the documented findings, disposition and treatment plan as described except to the extent set forth below. Mr Trevizo is currently admitted for cellulitis and wound R foot. He remains moderate to high risk due to potential for worsening clinical status. Mr Trevizo is feeling OK. No fever or chills. No CP or SOB. Tolerating IV abx and awaiting surgery. Exam alert Comfortable Mucus membranes dry Heart reg No wheeze Abd soft Dressing intact I/P 1. Cellulitis R foot 2. DM Further diagnoses and plan as above. <Serenity Medina - Last Filed: 05/14/18 12:41> (2) Diabetes mellitus Qualifiers: Diabetes mellitus type: type 2 Diabetes mellitus snf insulin use: without terminal system operator use Diabetes mellitus complication status: with skin complications Diabetes mellitus complication detail: with foot ulcer Qualified Code(s): E11.621 - Type 2 diabetes mellitus with foot ulcer; L97.509 - Non- pressure chronic ulcer of other part of unspecified foot with unspecified severity <Praneeth Barker - Last Filed: 05/14/18 18:20> (3) Diabetes mellitus Qualifiers: Diabetes mellitus type: type 2 Diabetes mellitus terminal system operator insulin use: without snf use Diabetes mellitus complication status: with skin complications Diabetes mellitus complication detail: with foot ulcer Qualified Code(s): E11.621 - Type 2 diabetes mellitus with foot ulcer; L97.509 - Non- pressure chronic ulcer of other part of unspecified foot with unspecified severity
[2018-05-14] MEDS ORDERED: Gadolinium Contrast Agent (WT Based) IV PRN (08:16)
--- NOTE | 2018-05-14 10:44 | Podiatry Progress Note ---
Date of Encounter: 05/14/18 Time of Encounter: 08:17 - Assessment and Plan (1) Wound of foot Current Visit: Yes Status: Acute Large wound noted to right dorsal foot Measuring 2 inches wide by 3 inches long, eschar noted to wound bed with worsening noted to wound edges, sloughing noted around wound edges, erythema noted to outlying wound bed from medial to lateral side and distal to malleolus, edema 2/4 to right malleolus and pedal area. Covered with Betadine, Adaptic, dry gauze, and Kerlix. Secured with paper tape. Concern for gas gangrene. Stat right ankle and right foot x-ray ordered. Stat MRI with and without contrast ordered. Will review once completed. Plan to go to the OR for I&D of wound tomorrow 05/15/18 Will make nothing by mouth once surgery time arranged Surgery consent on chart (2) Diabetes mellitus Current Visit: Yes Status: Acute HGB A1c 9.9 Recommend tight glycemic control Primary to manage Qualifiers: Diabetes mellitus type: type 2 Diabetes mellitus nursing home insulin use: without nursing home use Diabetes mellitus complication status: with skin complications Diabetes mellitus complication detail: with foot ulcer Qualified Code(s): E11.621 - Type 2 diabetes mellitus with foot ulcer; L97.509 - Non-pressure chronic ulcer of other part of unspecified foot with unspecified severity Subjective Interval history: Patient awake alert oriented. Up ambulating in room. Denies any pain, fevers, chills, nausea/vomiting/diarrhea. Patient reports right foot started seeping and nurse reinforced dressing this morning. Denies any other complications. Objective - Vital Signs Vital Signs: Vital Signs Temp Pulse Resp BP Pulse Ox 05/14/18 06:38 97.7 F 78 18 134/91 99 05/14/18 03:47 98.5 F 77 17 123/82 95 05/13/18 23:39 98.3 F 76 17 121/77 96 05/13/18 18:54 98.4 F 76 17 129/77 95 05/13/18 16:12 98.2 F 75 16 133/89 95 05/13/18 10:35 97.9 F 81 18 136/81 93 Intake and Output 05/13/18 05/14/18 05/14/18 23:59 07:59 15:59 Intake Total 340 / 340 850 / 850 Balance 340 / 340 850 / 850 Intake: IV Fluids 100 / 100 850 / 850 Zosyn 3.375 GM In 0.9 % Sodium 100 / 100 100 / 100 Chloride (Mini-Bag +) 100 ML @ 25 mls/hr IVPB Q8HR [facility] Rx#: [id number] Vancocin 1,500 MG In 0.9 % 250 / 250 Sodium Chloride 250 ML @ 167 mls/hr IVPB Q12H [facility] Rx#: [id number] Vancocin 2,000 MG In 0.9 % 500 / 500 Sodium Chloride 500 ML @ 250 mls/hr IVPB ONCE ONE Rx#: [id number] Oral 240 / 240 Other: Meal Dinner Percent of Meal Consumed 100% Weight 101.2 kg Blood Glucose* 197 189 Patient Weight 05/14/18 23:59 Weight 101.2 kg - Exam Exam: Constitiutional: Alert and oriented x 3. Vascular: 244 DP/PT bilaterally, CFT <3 sec to all digits, warm to warm from tibia to toes bilaterally Neurologic: Positive light touch and pinprick test, normal plantar response, Normal position sense dorsiflexion/plantar flexion Dermatologic: Right dorsal foot wound measuring 2 inches wide by 3 inches long. Eschar noted to wound bed. Large amount of serosanguineous drainage noted. Sloughing noted to wound edges. Musculoskeletal: 5/5 muscle strength and normal tone bilaterally. - Lab Result Diagrams: 05/14/18 03:05 05/14/18 03:05 Labs: Abnormal lab results MCV 82.4 fL (83.0-100.0) L 05/14/18 03:05 PT 13.3 Seconds (9.4-12.1) H 05/14/18 03:05 APTT 37.0 Seconds (26.0-36.0) H 05/14/18 03:05 Creatinine 0.62 mg/dL (0.70-1.30) L 05/14/18 03:05 Glucose 247 mg/dL (70-105) H 05/14/18 03:05 POC Glucose 197 mg/dL (70-99) H 05/13/18 20:18 Hemoglobin A1c 9.9 % (-5.6) H 05/13/18 05:26 AST 10 Units/L (13-39) L 05/13/18 05:26 HDL Cholesterol 26 mg/dL (40-59) L 05/12/18 17:58 Urine Glucose (UA) 500 mg/dL (Normal) H 05/12/18 14:05 Urine Urobilinogen 2.0 mg/dL (Normal) H 05/12/18 14:05 Microbiology, Last 48 Hours 05/12/18 13:52 Blood Culture - Preliminary Peripheral Venipuncture Culture is incubating and being continuously monitored for growth. Final report to follow. 05/12/18 13:52 Blood Culture - Preliminary Peripheral Venipuncture Culture is incubating and being continuously monitored for growth. Final report to follow. Consult Discharge Plan - Plan Referrals: NONE,PCP [Primary Care Provider] -
[2018-05-14] MEDS: Insulin DETEMIR 100 UNIT/ML X5UNITS SQ SCH ×2 (12:59→20:26)
[2018-05-14] MEDS: Ondansetron ODT 4 MG TAB.RAPDIS SL PRN (16:23)
--- NOTE | 2018-05-14 23:31 | Anesthesia Evaluation PreOp ---
<Jazlyn Pickett Messi - Last Filed: 05/14/18 23:29> Date of Encounter: 05/14/18 Time of Encounter: 23:30 - Past History Planned Operation: R foot I and D Cardiac History: Denies any Significant Hx Pulmonary History: Smoker [facility] History: Denies Any Significant HX Other Medical History: Diabetes Type II, GERD Anesthesia History: No Prior Anesthetic Complications, Past Anesthesia (elbow, thumb) Alcohol Use: none Drug use: none Medications and Allergies Cephalexin [Keflex] 500 mg PO QID #40 capsule 05/04/18 [Rx] Ibuprofen [Ibu-200] 400 mg PO Q6H PRN 05/04/18 [History] Ranitidine HCl [Acid Probate Paralegal] 150 mg PO DAILY PRN 05/04/18 [History] Sulfamethoxazole/Trimeth DS [Bactrim DS] 1 tab PO BID 05/12/18 [History] Allergy/AdvReac Type Severity Reaction Status Date / Time No Known Allergies Allergy Verified 05/12/18 14:38 - Meds/Allergy Pre-op Review Medications Reviewed: Yes Allergies Reviewed: Yes Beta Blockers on Current Med List: No Anesthesia Results - Labs 05/14/18 03:05 05/14/18 03:05 - Imaging EKG: report reviewed (Sinus rhythm Electronically Signed On 05-13-2018 9:13:47 EDT by Andi Betancourt) Anesthesia Exam Vital Signs/O2 Sat, Most Current Temp Pulse Resp BP Pulse Ox 98.1 F 69 18 131/86 96 05/14/18 18:59 05/14/18 18:59 05/14/18 18:59 05/14/18 18:59 05/14/18 18:59 Weight: 101kg NPO (# of Hours): MN - [facility] LOC: Oriented [facility] Motor: Normal RUE, Normal LUE, Normal RLE, Normal LLE, Normal Face Anesthesia Assess/Plan ASA Score: 2 Modified [place] Scale for Level of Consciousness: Cooperative, oriented, and tranquil Anesthetic Plan: General, MAC Monitoring Plan: Standard Monitors Recovery Plan: PACU <Lowell Ramirez - Last Filed: 05/15/18 16:13> - Past History Cardiac History: Denies any Significant Hx Pulmonary History: Smoker [facility] History: Denies Any Significant HX Other Medical History: Diabetes Type II Anesthesia History: No Prior Anesthetic Complications, Past Anesthesia Alcohol Use: none Drug use: none - Meds/Allergy Pre-op Review Allergies Reviewed: Yes Beta Blockers on Current Med List: No Anesthesia Results - Labs 05/15/18 04:29 05/15/18 04:29 - Imaging EKG: report reviewed Anesthesia Exam Vital Signs/O2 Sat, Most Current Temp Pulse Resp BP Pulse Ox 97.9 F 84 16 141/87 97 05/15/18 11:13 05/15/18 11:13 05/15/18 11:13 05/15/18 11:13 05/15/18 11:13 NPO (# of Hours): After 9am 05/15/18 Pain Scale: 0 Pain Scale Used: Numeric (1 - 10) - HEENT Pupil (Motor): Pupils equal, EOMI Mallampati: III Teeth: Missing Denture Type: Upper: Complete, Lower: Partial Oral Opening: Greater than 3 - [facility] Motor: Normal RUE, Normal LUE, Normal RLE, Normal LLE, Normal Face [facility] Sensory: Normal: RUE, LUE, RLE, LLE, Face - Cardiac Rhythm: Regular Murmur: None JVD: No Carotid Bruit: No - Pulmonary Breath Sounds: bilateral Clear Respiratory Effort: Symmetrical Anesthesia Assess/Plan ASA Score: 2 Modified [place] Scale for Level of Consciousness: Cooperative, oriented, and tranquil Anesthetic Plan: MAC Autologous Blood: Yes Monitoring Plan: Standard Monitors Recovery Plan: PACU
[2018-05-15] MEDS: Ondansetron ODT 4 MG TAB.RAPDIS SL PRN (04:12)
[2018-05-15 05:15] LABS: Basophils # 0.1 K/mcL (0.0-0.2); Basophils % 0.6 %; Eosinophils # 0.2 K/mcL (0.0-0.6); Eosinophils % 1.4 %; Hematocrit 40.7 % (37.5-50.1); Hemoglobin 14.3 g/dL (12.9-16.9); Immature Granulocytes % 0.7 % (0-4); Lymphocytes # 2.5 K/mcL (0.6-4.6); Lymphocytes % 21.1 %; Mean Corpuscular HGB Conc 35.1 g/dL (31.6-35.5); Mean Corpuscular Hemoglobin 29.2 pg (28.0-33.3); Mean Corpuscular Volume 83.2 fL (83.0-100.0); Mean Platelet Volume 9.8 fL (9.4-12.4); Monocytes % 8.3 %; Neutrophils # 8.1 K/mcL (1.6-8.9); Platelet Count 371 K/mcL (140-400); Red Blood Count 4.89 M/mcL (4.19-5.50); Red Cell Distribution Width 11.8 % (11.5-14.5); Segmented Neutrophils % 67.9 %
[2018-05-15] MEDS ORDERED: Ondansetron ODT 4 MG TAB.RAPDIS SL ONE (05:17)
[2018-05-15 05:31] LABS: BUN/Creatinine Ratio 10 (6-26); Blood Urea Nitrogen 8 mg/dL (6-20); Calcium 9.2 mg/dL (8.6-10.3); Carbon Dioxide 25 mEq/L (23-29); Chloride 105 mEq/L (98-107); Glucose 129 mg/dL (70-105); Osmolality,Calculated 292 (280-300); Potassium 3.7 mEq/L (3.5-5.1); Sodium 141 mEq/L (136-145); eGFR For Non-African Americans > 60 (> 60)
[2018-05-15] MEDS: *HR* Heparin 5,000 UNIT/ML VIAL SQ SCH ×2 (05:49→19:08)
[2018-05-15] MEDS ORDERED: Vancomycin 1,000 MG, 0.9 % Sodium Chloride 1,000 ML IR ONE (06:00)
--- NOTE | 2018-05-15 08:23 | Internal Med Progress Note ---
<Praneeth Barker - Last Filed: 05/15/18 12:58> Hospitalist Progress Note - Exam Vitals: Temp Pulse Resp BP Pulse Ox 97.9 F 84 16 141/87 97 05/15/18 11:13 05/15/18 11:13 05/15/18 11:13 05/15/18 11:13 05/15/18 11:13 - Assessment and Plan (1) Cellulitis of right foot Current Visit: Yes Status: Acute (2) Wound of foot Current Visit: Yes Status: Acute (3) Diabetes mellitus Current Visit: Yes Status: Acute - Time Spent with Patient Total time spent is greater than 50% in coordination of care (as documented) at patient's floor/unit and/or counseling patient: Internal Medicine: Result - Labs CBC & Chem 7: 05/15/18 04:29 05/15/18 04:29 Labs: Short CBC 05/15/18 Range/Units 04:29 WBC 11.9 H (4.3-11.1) K/mcL Hgb 14.3 (12.9-16.9) g/dL Hct 40.7 (37.5-50.1) % Plt Count 371 (140-400) K/mcL Neutrophils # 8.1 (1.6-8.9) K/mcL BMP 05/15/18 04:29 Sodium 141 Potassium 3.7 Chloride 105 Carbon Dioxide 25 BUN 8 Creatinine 0.82 Glucose 129 H Calcium 9.2 - ABG Interpretation ABG results: PT/INR, D-dimer PT 13.3 Seconds (9.4-12.1) H 05/14/18 03:05 Consult Discharge Plan - Plan Referrals: NONE,PCP [Primary Care Provider] - - Attending Attestation I examined this patient and my medical decision-making was reviewed with the Resident Physician on 05/15/18. I agree with the documented findings, disposition and treatment plan as described except to the extent set forth below. Mr Trevizo is currently admitted for acute cellulitis R foot. He remains moderate to high risk due to potential for worsening clinical status. He is to go to OR today. Exam Alert. Comfortable Mucus membranes dry Heart reg No wheeze abd soft Dressing intact I/P 1. Celllulitis RLE - OR to debride today 2. DM Further diagnoses and plan as above. <Serenity Medina - Last Filed: 05/15/18 17:50> Hospitalist Progress Note - Encounter Date of Encounter: 05/15/18 Time of Encounter: 08:19 - Subjective Interval History: 47M with PMH uncontrolled DM presenting with non-healing ulcer of dorsal aspect of R Foot, CT showed some SubQ air but not in fascial plane, admitted for IV Abx after failure of outpt mgmt. On Vanc and zosyn. WBC 10.8 at admit, 11.9 today. Followed by podiatry that plans to take him to the OR for I&D with debridement today, NPO after breakfast. Added 10mg Levemir and low dose insulin friday, glucose 212-117 last 24h. A1c at admit 9.9. Diabetes education, monitor sugars, adjust insulin regiment as necessary. Needs referral for PCP at D/C. Pt's BP 145 - 120 / 92-73, could likely benefit from HTN treatment in outpt setting once acute infection has resolved. Overnight pt complaining of sinus congestion with cough production of clear sputum and 2x emesis productive of "yellow stomach acid." Was given SL Zofran and able to eat only a little breakfast, not complaining of any nausea now. Will change SL Zofran to IV. Still on scheduled for I&D today with podiatry. - Exam Vitals: Temp Pulse Resp BP Pulse Ox 97.8 F 79 16 136/87 95 05/15/18 06:31 05/15/18 06:31 05/15/18 06:31 05/15/18 06:31 05/15/18 06:31 Exam: General: A&O x 3. No acute distress. Well developed, well nourished Obese male Head: atraumatic, normocephalic. ENT: No conjunctival injection, no scleral icterus. PERRLA. EOMI. Oropharynx non- erythematous. mucous membranes moist. Neuro: No focal deficits, no speech deficit, no facial droop, mentating well. Pulm: Lungs CTAB A/P. No wheezes, rales, ronchi. Cardio: RRR no m/r/g. Chest not tender to palpation. Abd: Soft, non-distended. Normoactive bowel sounds. Non-tender to palpation. No guarding. Non rigid. Extremities:Rt foot bandaged recently by podiatry, left extremity without wounds, edema, erythema Skin: warm, dry, intact. No rashes with exception of right foot wound Psych: Appropriate mood and affect. Answers questions appropriately. Cooperative with exam. - Assessment and Plan (1) Wound of foot Current Visit: Yes Status: Acute Assessment and Plan: -On Vanc/Zosyn - Podiatry following, plans to take him to OR for I&D with debridement Today - Friday - goal glucose 100-150 (2) Diabetes mellitus Current Visit: Yes Status: Acute Assessment and Plan: -Pt was dx T2DM several years ago, then lost 100lbs and thought he did not have it anymore - A1c 9.9 at admit - Pt on 10mg Levemir BID and medium dose correction insulin, sugars now 117-203 - diabetes education - referral for PCP at D/C DVT Prophylaxis: heparin 5000u SQ Q12 - Time Spent with Patient Total time spent is greater than 50% in coordination of care (as documented) at patient's floor/unit and/or counseling patient: less than 15 minutes Plan of Care Discussed with: patient Internal Medicine: Result - Labs CBC & Chem 7: 05/15/18 04:29 05/15/18 04:29 Labs: Short CBC 05/15/18 Range/Units 04:29 WBC 11.9 H (4.3-11.1) K/mcL Hgb 14.3 (12.9-16.9) g/dL Hct 40.7 (37.5-50.1) % Plt Count 371 (140-400) K/mcL Neutrophils # 8.1 (1.6-8.9) K/mcL BMP 05/15/18 04:29 Sodium 141 Potassium 3.7 Chloride 105 Carbon Dioxide 25 BUN 8 Creatinine 0.82 Glucose 129 H Calcium 9.2 - ABG Interpretation ABG results: PT/INR, D-dimer PT 13.3 Seconds (9.4-12.1) H 05/14/18 03:05 - Impressions Impressions Foot MRI 05/14/18 08:16 IMPRESSION: Negative study for osteomyelitis. Irregular elongated focal fluid collection in the superficial aspect of the dorsal foot with some internal gas compatible with abscess as above. Associated cellulitis to the dorsal foot. Mild muscle edema without significant enhancement to intrinsic musculature of the foot, predominantly the intraosseous muscles about the 2nd through 4th metatarsals. This may be reactive in nature or reflect nonspecific myositis. Early denervation changes could have a similar appearance. D/ / 05/14/2018 11:33:54 Steven Jensen MD / [facility] Interpreting Provider: Steven Jensen MD Ankle X-Ray 05/14/18 08:29 IMPRESSION: Nonspecific soft tissue edema without gas collection. No radiographic features of osteomyelitis. D/ / 05/14/2018 09:19:46 Ezequiel Anaya MD / [facility] Interpreting Provider: Ezequiel Anaya MD Foot X-Ray 05/14/18 08:29 IMPRESSION: 1. Soft tissue swelling of the foot dorsum. No evidence of soft tissue gas or radiopaque foreign body. 2. No acute osseous abnormality or evidence of osteomyelitis. D/ / Barak Draper MD / Barak Draper MD Interpreting Provider: Barak Draper MD <Praneeth Barker - Last Filed: 05/15/18 12:58> (3) Diabetes mellitus Qualifiers: Diabetes mellitus type: type 2 Diabetes mellitus residential insulin use: without dementia program director use Diabetes mellitus complication status: with skin complications Diabetes mellitus complication detail: with foot ulcer Qualified Code(s): E11.621 - Type 2 diabetes mellitus with foot ulcer; L97.509 - Non- pressure chronic ulcer of other part of unspecified foot with unspecified severity <Serenity Medina - Last Filed: 05/15/18 17:50> (2) Diabetes mellitus Qualifiers: Diabetes mellitus type: type 2 Diabetes mellitus residential insulin use: without residential use Diabetes mellitus complication status: with skin complications Diabetes mellitus complication detail: with foot ulcer Qualified Code(s): E11.621 - Type 2 diabetes mellitus with foot ulcer; L97.509 - Non- pressure chronic ulcer of other part of unspecified foot with unspecified s everity
[2018-05-15] MEDS: Piperacillin/Tazobactam 3.375 GM in 0.9 % Sodium Chloride Mini Bag 100 ML IVPB SCH ×2 (08:45→16:45)
[2018-05-15] MEDS: Insulin LISPRO 300 UNITS/3 ML VIAL SQ SCH ×4 (08:45→21:00)
[2018-05-15] MEDS: Insulin DETEMIR 100 UNIT/ML X5UNITS SQ SCH ×2 (09:59→21:00)
[2018-05-15] MEDS ORDERED: Ondansetron 4 MG/2 ML VIAL IVP PRN ×2 (10:25→20:16)
[2018-05-15] MEDS ORDERED: *HR* Propofol 200 MG/20 ML VIAL IVP ONE (16:13)
[2018-05-15] MEDS ORDERED: *HR* Midazolam HCl 2 MG/2 ML VIAL ONE (16:13)
[2018-05-15] MEDS ORDERED: *HR* FentaNYL (PF) 100 MCG/2 ML VIAL ONE (16:13)
[2018-05-15] MEDS ORDERED: Ondansetron 4 MG/2 ML VIAL ONE (16:14)
[2018-05-15] MEDS ORDERED: Lidocaine -MPF 2% 2 ML VIAL ONE (16:14)
[2018-05-15] MEDS ORDERED: Vancomycin 1,000 MG VIAL ONE (16:43)
--- NOTE | 2018-05-15 19:39 | Anesthesia Evaluation Post Op ---
Date of Encounter: 05/15/18 Time of Encounter: 17:35 - Vital Signs Vital Signs: B/P 122/75, HR- 80, Resp 20, SaO2 97% (1730 hr) - Lungs Lungs: Clear Ascult./Percussion - Airway Airway: Non-obstructed - Cardiovascular Regular Rate, Baseline Rhythm - Mental Status Mental Status: Alert & Oriented, Answers Appropriately - Pain Pain Scale: 0 - Nausea Vomiting Nausea Vomiting: Not Present - Hydration Hydration: Has not voided - Discharge PostOp Status: Transfer Patient to floor (Awake and Alert X3 Respirations even and unlabored. Tolerated MAC / sedation well.)
--- NOTE | 2018-05-15 19:45 | Orthopedic Operative Note ---
Date of procedure: 05/15/18 Pre-op diagnosis: right foot infection, necrosis of skin, abscess of foot Post-op diagnosis: same Procedure: 05/15/18 18:51 1. Incision and drainage below fascia, right foot Implants: None Complications: None Anesthesia: MAC, local Local Anesthetics: 0.5% Sensorcaine HCL SubQ (cc), 1% Lidocaine HCL SubQ (cc) Surgeon: Afshin London Was there an pharmacist assistant present: No Estimated blood loss (cc): 10 Tourniquet Time (Minutes): 0 Specimen: Abscess and necrotic tissue to micro for aerobe and anaerobe culture Condition: stable Disposition: floor Procedure in Detail: 05/15/18 18:53 INDICATIONS AND CONSENT Chris Trevizo is a 47 year old male uncontrolled diabetic who initially presented to [facility] with acute infection of the right foot. He failed initial by mouth antibiotic regimen and the infection worsened. He applied a salve topical which made the infection worse. On admission, he had cellulitis and necrotic wound with concern for abscess. Radiographs and CT scan were negative for soft tissue emphysema. Non-invasive vascular studies showed no evidence of arterial disease. Given the extent of local soft tissue infection and cellulitis, surgical intervention was warranted for incision and drainage of non-viable soft tissue. We discussed the above procedures in detail. This included a discussion on the indications, contraindications, and possible complications including but not limited to: worsening infection, non-healing wound, pain, swelling, bleeding, blood clots, heart complications, nerve injury, vascular injury, loss of limb, loss of life, and need for further surgery. There were plans for a potential staged procedure, if warranted based on soft tissue quality following the initial debridement. We also reviewed the expected post operative course, including a discussion on the non-weightbearing status after this procedure. He related understanding of our discussion regarding this surgery. All questions were answered to his satisfaction, and a proper written informed consent was obtained, signed, and placed in the chart. No guarantees were given, stated or implied, as to the outcome of this procedure. PROCEDURE IN DETAIL The patient was seen in the pre-operative holding area by Anesthesia, where he was consented for MAC with local block. The patient was then brought back to the operative suite and placed on the operating room table in the supine position. A sign-in was performed. MAC was then initiated per Anesthesia protocol. A well- padded pneumatic right ankle tourniquet was then placed but was not inflated at any point during the procedure. Next, the right lower leg was scrubbed, prepped, and draped in the usual aseptic manner. A [place] Time-Out was performed, and all parties in the room agreed. The periwound skin was injected using a total of 5mL of 1% lidocaine plain and 5mL of 0.5% marcaine plain. A curette and 15 blade were used to perform a sharp debridement of the dorsal right foot necrotic tissue. The necrotic tissue was sent to micro for aerobe, anaerobe cultures. A rongeur and curette were used to sharply debride all non-viable soft tissue of the underlying abscess. There was tracking of the abscess distally and proximal- lateral under the fascial plane. A 15 blade was used to remove the overlying soft tissue to expose the entire wound. All non-viable soft tissue was excised down to but not including the extensor tendons. There was noted to be viable bleeding soft tissue at the wound base. Post debridement wound measurement was 6.5cm x 4.2cm x 0.3cm. The wound was irrigated with 3 liters of normal saline infused with 1g of Vancomycin. The wound was then dressed with Xeroform, kerlix, ABD, and [place] wrap. Capillary refill time of the toes on the right foot was also noted to be brisk at this time. A sign-out was performed. The patient tolerated anesthesia and the procedure well, and was transferred to PAC-U with vital signs stable and vascular status intact to the right lower extremity. Needle and sponge counts were correct X 2 at the end of the case. Dr. Afshin London was present, scrubbed, and participated in all vital aspects of the procedure. After a brief stay in PAC-U, the patient will be admitted back to the floor for continued IV antibiotics. Further antibiotic recommendations and possible staged debridement procedures will be determined during the post operative course this admission. 05/15/18 19:07
[2018-05-15] MEDS ORDERED: Dextrose Gel 15 GM/37.5 ML TUBE PO PRN ×2 (20:16)
[2018-05-15] MEDS ORDERED: Naloxone 0.4 MG/ML INJ IVP PRN (20:16)
[2018-05-15] MEDS ORDERED: Gadolinium Contrast Agent (WT Based) IV PRN (20:16)
[2018-05-15] MEDS ORDERED: *HR* Dextrose 50 % in Water (Syg) 50 ML SYRINGE IVP PRN (20:16)
[2018-05-15] MEDS ORDERED: Ibuprofen 400 MG TABLET PO PRN (20:16)
[2018-05-15] MEDS ORDERED: D5% in Water 1,000 ML IVC PRN (20:16)
[2018-05-16] MEDS ORDERED: Piperacillin/Tazobactam 3.375 GM in 0.9 % Sodium Chloride Mini Bag 100 ML IVPB SCH
[2018-05-16] MEDS: Piperacillin/Tazobactam 3.375 GM in 0.9 % Sodium Chloride Mini Bag 100 ML IVPB SCH ×3 (04:29→22:06)
[2018-05-16] MEDS: *HR* Heparin 5,000 UNIT/ML VIAL SQ SCH ×2 (04:30→17:04)
[2018-05-16 06:23] LABS: Basophils # 0.1 K/mcL (0.0-0.2); Basophils % 0.5 %; Eosinophils # 0.1 K/mcL (0.0-0.6); Eosinophils % 0.8 %; Hematocrit 37.3 % (37.5-50.1); Immature Granulocytes % 0.6 % (0-4); Lymphocytes # 2.2 K/mcL (0.6-4.6); Lymphocytes % 18.8 %; Mean Corpuscular Hemoglobin 28.5 pg (28.0-33.3); Mean Corpuscular Volume 83.6 fL (83.0-100.0); Monocytes % 8.5 %; Neutrophils # 8.1 K/mcL (1.6-8.9); Platelet Count 369 K/mcL (140-400); Red Blood Count 4.46 M/mcL (4.19-5.50); Red Cell Distribution Width 11.8 % (11.5-14.5); Segmented Neutrophils % 70.8 %
[2018-05-16 06:26] LABS: Hemoglobin 12.7 g/dL (12.9-16.9)
[2018-05-16 06:52] LABS: BUN/Creatinine Ratio 9 (6-26); Blood Urea Nitrogen 10 mg/dL (6-20); Calcium 8.6 mg/dL (8.6-10.3); Carbon Dioxide 27 mEq/L (23-29); Chloride 107 mEq/L (98-107); Glucose 209 mg/dL (70-105); Osmolality,Calculated 301 (280-300); Potassium 3.7 mEq/L (3.5-5.1); Sodium 143 mEq/L (136-145); eGFR For Non-African Americans > 60 (> 60)
[2018-05-16] MEDS: Insulin LISPRO 300 UNITS/3 ML VIAL SQ SCH ×4 (08:27→22:09)
[2018-05-16] MEDS: Insulin DETEMIR 100 UNIT/ML X5UNITS SQ SCH ×2 (08:27→22:08)
[2018-05-16] MEDS: Ondansetron ODT 4 MG TAB.RAPDIS SL PRN (08:34)
--- NOTE | 2018-05-16 09:49 | Internal Med Progress Note ---
Hospitalist Progress Note - Encounter Date of Encounter: 05/16/18 Time of Encounter: 09:20 - Subjective Interval History: Mr Trevizo is currently admitted for infected R foot s/p I&D. He remains moderate to high risk due to potential for worsening clinical status. Mr Trevizo is up in bathroom. He is feeling OK. No pain. Cultures pending. No fever or chills. No GI issues. - Exam Vitals: Temp Pulse Resp BP Pulse Ox 98.9 F 84 16 139/57 92 05/16/18 06:37 05/16/18 06:37 05/16/18 06:37 05/16/18 06:37 05/16/18 06:37 Exam: General: Alert and oriented. Comfortable at this time. Up in room. Skin: Normal color, no rash, no lesions. H: Normocephalic. EENT: EOMI, pupils equal, round and reactive. Mucus membranes moist. No lesion. Cardiovascular: Normal S1 & S2, no rubs, murmurs or gallops. No JVD. Pulse regular. Not tachycardic. Lungs: Normal breath sounds, no wheezes or crackles. Abdomen: Soft, non-tender, no rigidity. Normal bowel sounds. Extremities: No deformity, no edema or tenderness, no joint swelling or clubbing. Dressing intact. Neurological: Normal cognition and motor skills. Pulses: Carotid and radial pulses normal +2. Rest of the physical exam is non contributory - Assessment and Plan (1) Cellulitis of right foot Current Visit: Yes Status: Acute Assessment and Plan: On IV abx. S/P I&D of foot yesterday. Cultures pending. (2) Wound of foot Current Visit: Yes Status: Acute Assessment and Plan: -As above. (3) Diabetes mellitus Current Visit: Yes Status: Acute Assessment and Plan: Continue current glucose management. - Time Spent with Patient Total time spent is greater than 50% in coordination of care (as documented) at patient's floor/unit and/or counseling patient: Internal Medicine: Result - Labs CBC & Chem 7: 05/16/18 05:49 05/16/18 05:49 Labs: Short CBC 05/16/18 Range/Units 05:49 WBC 11.5 H (4.3-11.1) K/mcL Hgb 12.7 L D (12.9-16.9) g/dL Hct 37.3 L (37.5-50.1) % Plt Count 369 (140-400) K/mcL Neutrophils # 8.1 (1.6-8.9) K/mcL BMP 05/16/18 05:49 Sodium 143 Potassium 3.7 Chloride 107 Carbon Dioxide 27 BUN 10 Creatinine 1.15 Glucose 209 H Calcium 8.6 - ABG Interpretation ABG results: PT/INR, D-dimer PT 13.3 Seconds (9.4-12.1) H 05/14/18 03:05 Consult Discharge Plan - Plan Referrals: NONE,PCP [Primary Care Provider] - (3) Diabetes mellitus Qualifiers: Diabetes mellitus type: type 2 Diabetes mellitus longterm insulin use: without longterm use Diabetes mellitus complication status: with skin complications Diabetes mellitus complication detail: with foot ulcer Qualified Code(s): E11.621 - Type 2 diabetes mellitus with foot ulcer; L97.509 - Non- pressure chronic ulcer of other part of unspecified foot with unspecified severity
--- NOTE | 2018-05-16 12:40 | Podiatry Progress Note ---
Date of Encounter: 05/16/18 Time of Encounter: 12:40 - Assessment and Plan (1) Status post incision and drainage Current Visit: Yes Status: Acute 1. Dressing will be changed tomorrow. Will plan for repeat I&D or wound vac application depending on soft tissue quality at dressing change. 2. Follow up culture results. IV or PO at discharged determined by clinical picture and culture results over the next 48 hours. 3. NWB right lower extremity in surgical shoe. 4. Tight blood glucose control. Subjective Principal diagnosis: foot infection Interval history: Patient progressing well POD 1 s/p right foot I&D. Dressing intact. Patient denies v/f/c and reports mild nausea overnight. He denies any other complaints. Objective - Vital Signs Vital Signs: Vital Signs Temp Pulse Resp BP Pulse Ox 05/16/18 11:08 99.3 F 79 16 135/81 92 05/16/18 06:37 98.9 F 84 16 139/57 92 05/16/18 03:46 98.2 F 82 17 127/87 93 05/15/18 23:35 98.2 F 74 17 139/75 97 05/15/18 18:00 97.6 F 78 16 121/84 95 Intake and Output 05/15/18 05/16/18 05/16/18 23:59 07:59 15:59 Intake Total 600 / 600 960 / 960 Output Total Balance 590 / 590 960 / 960 Intake: IV Fluids 600 / 600 600 / 600 Zosyn 3.375 GM In 0.9 % Sodium 100 / 100 100 / 100 Chloride (Mini-Bag +) 100 ML @ 25 mls/hr IVPB Q8H [facility] Rx#: [id number] Vancocin 1,750 MG In 0.9 % 500 / 500 500 / 500 Sodium Chloride 500 ML @ 333.3 mls/hr IVPB Q12H [facility] Rx#: [id number] Oral 360 / 360 Output: Estimated Blood Loss Other: Meal Breakfast Percent of Meal Consumed 100% Weight 102 kg Blood Glucose* 199 Patient Weight 05/16/18 23:59 Weight 102 kg - Exam Exam: Right foot dressing intact. No streaking erythema proximal to wound dressing. Capillary refill brisk to all digits on right. Able to actively move at right ankle and all 5 digits on right. Sensations diminished to toes. - Lab Result Diagrams: 05/16/18 05:49 05/16/18 05:49 Labs: Abnormal lab results WBC 11.5 K/mcL (4.3-11.1) H 05/16/18 05:49 Hgb 12.7 g/dL (12.9-16.9) L D 05/16/18 05:49 Hct 37.3 % (37.5-50.1) L 05/16/18 05:49 PT 13.3 Seconds (9.4-12.1) H 05/14/18 03:05 APTT 37.0 Seconds (26.0-36.0) H 05/14/18 03:05 Glucose 209 mg/dL (70-105) H 05/16/18 05:49 POC Glucose 199 mg/dL (70-99) H 05/16/18 11:11 Hemoglobin A1c 9.9 % (-5.6) H 05/13/18 05:26 Calculated Osmolality 301 (280-300) H 05/16/18 05:49 AST 10 Units/L (13-39) L 05/13/18 05:26 HDL Cholesterol 26 mg/dL (40-59) L 05/12/18 17:58 Urine Glucose (UA) 500 mg/dL (Normal) H 05/12/18 14:05 Urine Urobilinogen 2.0 mg/dL (Normal) H 05/12/18 14:05 Vancomycin Trough 16 mcg/mL (5-10) H 05/15/18 14:36 Microbiology, Last 48 Hours 05/15/18 17:05 Wound Culture - Preliminary Right Foot No growth. 05/15/18 17:05 Gram Stain - Preliminary Right Foot Consult Discharge Plan - Plan Referrals: NONE,PCP [Primary Care Provider] -
[2018-05-17 04:10] LABS: Basophils # 0.1 K/mcL (0.0-0.2); Basophils % 0.5 %; Eosinophils # 0.2 K/mcL (0.0-0.6); Eosinophils % 1.3 %; Hematocrit 37.8 % (37.5-50.1); Hemoglobin 12.9 g/dL (12.9-16.9); Immature Granulocytes % 0.5 % (0-4); Lymphocytes # 1.8 K/mcL (0.6-4.6); Lymphocytes % 16.2 %; Mean Corpuscular HGB Conc 34.1 g/dL (31.6-35.5); Mean Corpuscular Volume 84.9 fL (83.0-100.0); Mean Platelet Volume 9.8 fL (9.4-12.4); Monocytes # 1.1 K/mcL (0.0-1.3); Platelet Count 333 K/mcL (140-400); Red Blood Count 4.45 M/mcL (4.19-5.50); Red Cell Distribution Width 11.9 % (11.5-14.5); Segmented Neutrophils % 71.5 %
[2018-05-17 04:28] LABS: BUN/Creatinine Ratio 8 (6-26); Blood Urea Nitrogen 10 mg/dL (6-20); Calcium 8.7 mg/dL (8.6-10.3); Carbon Dioxide 27 mEq/L (23-29); Chloride 107 mEq/L (98-107); Glucose 139 mg/dL (70-105); Osmolality,Calculated 299 (280-300); Potassium 3.8 mEq/L (3.5-5.1); Sodium 144 mEq/L (136-145); eGFR For Non-African Americans > 60 (> 60)
[2018-05-17] MEDS: *HR* Heparin 5,000 UNIT/ML VIAL SQ SCH ×2 (05:46→16:37)
[2018-05-17] MEDS: Piperacillin/Tazobactam 3.375 GM in 0.9 % Sodium Chloride Mini Bag 100 ML IVPB SCH ×3 (05:48→21:15)
[2018-05-17] MEDS: Insulin LISPRO 300 UNITS/3 ML VIAL SQ SCH ×4 (07:39→21:30)
--- NOTE | 2018-05-17 08:08 | Internal Med Progress Note ---
Hospitalist Progress Note - Encounter Date of Encounter: 05/17/18 Time of Encounter: 10:00 - Subjective Interval History: Mr Trevizo is currently admitted for infected R foot s/p I&D. He remains moderate to high risk due to potential for worsening clinical status. Mr Trevizo is resting in bed today. No new issues last night. Cultures negative thus far. No GI issues. Has some cough but appears to be related to no smoking. - Exam Vitals: Temp Pulse Resp BP Pulse Ox 98.8 F 75 20 143/88 94 05/17/18 07:29 05/17/18 07:29 05/17/18 07:29 05/17/18 07:29 05/17/18 07:29 Exam: General: Alert and oriented. Comfortable at this time. Resting comfortably in bed. Skin: Normal color, no rash, no lesions. H: Normocephalic. EENT: EOMI, pupils equal. Mucus membranes moist. No lesion. Cardiovascular: Normal S1 & S2, no rubs, murmurs or gallops. No JVD. Pulse regular. Lungs: Normal breath sounds, no wheezes or crackles. No rhonchi. Abdomen: Soft, non-tender, no rigidity. Normal bowel sounds. Extremities: No deformity, no edema or tenderness, no joint swelling or clubbing. Dressing intact. Neurological: Normal cognition and motor skills. Pulses: radial pulses normal +2. Rest of the physical exam is non contributory - Assessment and Plan (1) Cellulitis of right foot Current Visit: Yes Status: Acute Assessment and Plan: Continues on IV abx. Cultures negative thus far. Anticipate d/c on PO meds. (2) Wound of foot Current Visit: Yes Status: Acute Assessment and Plan: -As above. (3) Diabetes mellitus Current Visit: Yes Status: Chronic Assessment and Plan: Blood sugar high intermittently. Will increase Detemir. (4) Tobacco abuse Current Visit: Yes Status: Chronic Assessment and Plan: Cessation counselling. - Time Spent with Patient Total time spent is greater than 50% in coordination of care (as documented) at patient's floor/unit and/or counseling patient: Internal Medicine: Result - Labs CBC & Chem 7: 05/17/18 03:32 05/17/18 03:32 Labs: Short CBC 05/17/18 Range/Units 03:32 WBC 11.3 H (4.3-11.1) K/mcL Hgb 12.9 (12.9-16.9) g/dL Hct 37.8 (37.5-50.1) % Plt Count 333 (140-400) K/mcL Neutrophils # 8.0 (1.6-8.9) K/mcL BMP 05/17/18 03:32 Sodium 144 Potassium 3.8 Chloride 107 Carbon Dioxide 27 BUN 10 Creatinine 1.20 Glucose 139 H Calcium 8.7 - ABG Interpretation ABG results: PT/INR, D-dimer PT 13.3 Seconds (9.4-12.1) H 05/14/18 03:05 Consult Discharge Plan - Plan Additional Instructions: Follow up with Dr. Afshin London 1 week after discharge in [facility]. Referrals: NONE,PCP [Primary Care Provider] - (3) Diabetes mellitus Qualifiers: Diabetes mellitus type: type 2 Diabetes mellitus regional intermodal truck driver insulin use: without regional intermodal truck driver use Diabetes mellitus complication status: with skin complications Diabetes mellitus complication detail: with foot ulcer Qualified Code(s): E11.621 - Type 2 diabetes mellitus with foot ulcer; L97.509 - Non- pressure chronic ulcer of other part of unspecified foot with unspecified severity
[2018-05-17] MEDS: Insulin DETEMIR 100 UNIT/ML X5UNITS SQ SCH ×2 (08:57→21:29)
[2018-05-17] MEDS ORDERED: Vancomycin 1 EACH in 0.9 % Sodium Chloride 500 ML IVPB SCH (11:45)
[2018-05-17] MEDS: Ondansetron ODT 4 MG TAB.RAPDIS SL PRN (12:24)
--- NOTE | 2018-05-17 12:24 | Podiatry Progress Note ---
Date of Encounter: 05/17/18 Time of Encounter: 12:20 - Assessment and Plan (1) Status post incision and drainage Current Visit: Yes Status: Acute 1.Patient progressing well. Dressing changed today. Wound stable at this time. Cellulitis has improved. Will determine repeat debridement vs wound vac placement tomorrow based on appearance of the wound. 2. Follow up culture results. IV or PO at discharged determined by clinical picture and culture results over the next 48 hours. Cultures negative at this time and likely can discharge on PO. 3. NWB right lower extremity in surgical shoe. 4. Tight blood glucose control. Subjective Principal diagnosis: foot infection Interval history: Patient progressing well POD 2 s/p right foot I&D. Dressing intact. Patient denies n/v/f/c. He denies any other complaints besides mild pain in the foot. Objective - Vital Signs Vital Signs: Vital Signs Temp Pulse Resp BP Pulse Ox 05/17/18 11:34 98.9 F 75 16 126/85 96 05/17/18 07:29 98.8 F 75 20 143/88 94 05/17/18 04:49 99.0 F 81 18 133/83 95 05/17/18 01:00 98.9 F 79 18 128/79 93 05/16/18 18:56 99.0 F 70 17 134/78 98 05/16/18 16:13 98.6 F 68 17 142/88 98 Intake and Output 05/16/18 05/17/18 05/17/18 23:59 07:59 15:59 Intake Total 1900 / 1900 1450 / 1450 1080 / 1080 Balance 1900 / 1900 1450 / 1450 1080 / 1080 Intake: IV Fluids 600 / 600 100 / 100 600 / 600 Zosyn 3.375 GM In 0.9 % Sodium 100 / 100 100 / 100 100 / 100 Chloride (Mini-Bag +) 100 ML @ 25 mls/hr IVPB Q8H [facility] Rx#: [id number] Vancocin 1,750 MG In 0.9 % 500 / 500 500 / 500 Sodium Chloride 500 ML @ 333.3 mls/hr IVPB Q12H [facility] Rx#: [id number] Oral 1300 / 1300 1350 / 1350 480 / 480 Other: Meal Breakfast Percent of Meal Consumed 50% # Voids 1 Weight 102.73 kg Blood Glucose* 236 118 215 Patient Weight 05/17/18 23:59 Weight 102.73 kg - Exam Exam: Vascular: DP and PT palpable bilaterally. Capillary refill less than 3 seconds to all digits. Cellulitis improving right lower extremity. Dermatology: Surgical wound right dorsal foot with 10% fibrotic tissue and 90% granular base. No exposed tendon involvement in wound base. No active drainage or bleeding. Musculoskeletal: Able to actively move all 5 digits on right. No pain with calf compression. Neuro: Sensations diminished bilateral. - Lab Result Diagrams: 05/17/18 03:32 05/17/18 03:32 Labs: Abnormal lab results WBC 11.3 K/mcL (4.3-11.1) H 05/17/18 03:32 PT 13.3 Seconds (9.4-12.1) H 05/14/18 03:05 APTT 37.0 Seconds (26.0-36.0) H 05/14/18 03:05 Glucose 139 mg/dL (70-105) H 05/17/18 03:32 POC Glucose 236 mg/dL (70-99) H 05/16/18 18:55 Hemoglobin A1c 9.9 % (-5.6) H 05/13/18 05:26 AST 10 Units/L (13-39) L 05/13/18 05:26 HDL Cholesterol 26 mg/dL (40-59) L 05/12/18 17:58 Urine Glucose (UA) 500 mg/dL (Normal) H 05/12/18 14:05 Urine Urobilinogen 2.0 mg/dL (Normal) H 05/12/18 14:05 Vancomycin Trough 16 mcg/mL (5-10) H 05/15/18 14:36 Microbiology, Last 48 Hours 05/15/18 17:05 Wound Culture - Preliminary Right Foot No growth. 05/15/18 17:05 Gram Stain - Preliminary Right Foot Consult Discharge Plan - Plan Additional Instructions: Follow up with Dr. Afshin London 1 week after discharge in [facility]. Referrals: NONE,PCP [Primary Care Provider] -
[2018-05-18] MEDS: *HR* Heparin 5,000 UNIT/ML VIAL SQ SCH ×2 (05:09→17:54)
[2018-05-18] MEDS: Piperacillin/Tazobactam 3.375 GM in 0.9 % Sodium Chloride Mini Bag 100 ML IVPB SCH ×3 (05:11→20:38)
[2018-05-18 05:39] LABS: Basophils # 0.1 K/mcL (0.0-0.2); Basophils % 0.5 %; Eosinophils # 0.3 K/mcL (0.0-0.6); Eosinophils % 2.1 %; Hematocrit 35.9 % (37.5-50.1); Hemoglobin 12.2 g/dL (12.9-16.9); Immature Granulocytes % 0.5 % (0-4); Lymphocytes % 17.4 %; Mean Corpuscular Hemoglobin 28.6 pg (28.0-33.3); Mean Corpuscular Volume 84.3 fL (83.0-100.0); Mean Platelet Volume 9.7 fL (9.4-12.4); Monocytes % 8.5 %; Neutrophils # 8.3 K/mcL (1.6-8.9); Platelet Count 311 K/mcL (140-400); Red Blood Count 4.26 M/mcL (4.19-5.50); Red Cell Distribution Width 11.9 % (11.5-14.5)
[2018-05-18 05:53] LABS: BUN/Creatinine Ratio 7 (6-26); Blood Urea Nitrogen 9 mg/dL (6-20); Calcium 8.9 mg/dL (8.6-10.3); Carbon Dioxide 28 mEq/L (23-29); Chloride 107 mEq/L (98-107); Glucose 122 mg/dL (70-105); Osmolality,Calculated 296 (280-300); Potassium 3.5 mEq/L (3.5-5.1); Sodium 143 mEq/L (136-145); eGFR For Non-African Americans > 60 (> 60)
[2018-05-18] MEDS: Insulin LISPRO 300 UNITS/3 ML VIAL SQ SCH ×4 (08:38→20:44)
[2018-05-18] MEDS: Insulin DETEMIR 100 UNIT/ML X5UNITS SQ SCH ×2 (08:44→20:38)
--- NOTE | 2018-05-18 09:18 | Internal Med Progress Note ---
<Serenity Medina - Last Filed: 05/18/18 14:59> Hospitalist Progress Note - Encounter Date of Encounter: 05/18/18 Time of Encounter: 09:18 - Subjective Interval History: 47M with PMH uncontrolled DM presenting with non-healing ulcer of dorsal aspect of R Foot, CT showed some SubQ air but not in fascial plane, admitted for IV Abx after failure of outpt mgmt. On Vanc and zosyn. WBC 10.8 at admit, 11.7 today. Had I&D with debridement on 05/15/18 and is being followed by podiatry. Podiatry changed dressing yesterday and stated that it appears to be healing well and he will likely get a wound vac today and be able to start PO Abx. Cultures are pending. Awaiting recommendation from ID for oral antibiotic choice. Glucose co ntrol remains an issue, with values ranging 118-280 over the weekend. Pt was switched from high sliding scale to low sliding scale, and Levemir is at 12 units BID. It may be unrealistic to attain complete glucose control during this admission, but goal sugars are <180. Close outpatient follow-up with referral to residency clinic is recommended. Overnight, pt had one episode of nausea which was treated with anti-emetic. He denies vomiting for the last several days, and ROS was otherwise unremarkable. - Exam Vitals: Temp Pulse Resp BP Pulse Ox 98.9 F 75 15 134/79 96 05/18/18 07:14 05/18/18 07:14 05/18/18 07:14 05/18/18 07:14 05/18/18 07:14 Exam: General: A&O x 3. No acute distress. Well developed, well nourished Obese male Head: atraumatic, normocephalic. ENT: No conjunctival injection, no scleral icterus. PERRLA. EOMI. Oropharynx non- erythematous. mucous membranes moist. Neuro: No focal deficits, no speech deficit, no facial droop, mentating well. Pulm: Lungs CTAB A/P. No wheezes, rales, ronchi. Cardio: RRR no m/r/g. Chest not tender to palpation. Abd: Soft, non-distended. Normoactive bowel sounds. Tender to palpation in areas where he has been receiving heparin shots - BLQ. No guarding. Non rigid. Extremities:Rt foot bandaged recently by podiatry, left extremity without wounds, edema, erythema Skin: warm, dry, intact. No rashes with exception of right foot wound Psych: Appropriate mood and affect. Answers questions appropriately. Cooperative with exam. - Assessment and Plan (1) Wound of foot Current Visit: Yes Status: Acute Assessment and Plan: - s/p day 3 after I&D with debridement 05/15 - followed by podiatry who will assess wound today and either apply wound vac or return pt to OR - IV Zosyn & Vancomycin - Cultures pending - I&D following (2) Diabetes mellitus Current Visit: Yes Status: Chronic Assessment and Plan: -Pts a1c at admission was 9.9 - 12mg Levemir BID - Low dose correction scale to avoid hypoglycemia - goal sugars 100-180 - close outpatient follow-up with referral to residency clinic to establish DVT Prophylaxis: heparin 5000u SQ Q12 - Time Spent with Patient Total time spent is greater than 50% in coordination of care (as documented) at patient's floor/unit and/or counseling patient: less than 15 minutes Plan of Care Discussed with: patient Internal Medicine: Result - Labs CBC & Chem 7: 05/18/18 05:05 05/18/18 05:05 Labs: Short CBC 05/18/18 Range/Units 05:05 WBC 11.7 H (4.3-11.1) K/mcL Hgb 12.2 L (12.9-16.9) g/dL Hct 35.9 L (37.5-50.1) % Plt Count 311 (140-400) K/mcL Neutrophils # 8.3 (1.6-8.9) K/mcL BMP 05/18/18 05:05 Sodium 143 Potassium 3.5 Chloride 107 Carbon Dioxide 28 BUN 9 Creatinine 1.22 Glucose 122 H Calcium 8.9 - ABG Interpretation ABG results: PT/INR, D-dimer PT 13.3 Seconds (9.4-12.1) H 05/14/18 03:05 Consult Discharge Plan - Plan Additional Instructions: Follow up with Dr. Afshin London 1 week after discharge in [facility]. Referrals: NONE,PCP [Primary Care Provider] - <Praneeth Barker - Last Filed: 05/18/18 18:40> Hospitalist Progress Note - Exam Vitals: Temp Pulse Resp BP Pulse Ox 98.8 F 69 16 130/81 97 05/18/18 14:48 05/18/18 14:48 05/18/18 14:48 05/18/18 14:48 05/18/18 14:48 - Assessment and Plan (1) Wound of foot Current Visit: Yes Status: Acute (2) Diabetes mellitus Current Visit: Yes Status: Chronic (3) Cellulitis of right foot Current Visit: Yes Status: Acute (4) Obesity (BMI 30.0-34.9) Current Visit: Yes Status: Acute (5) Tobacco abuse Current Visit: Yes Status: Chronic - Time Spent with Patient Total time spent is greater than 50% in coordination of care (as documented) at patient's floor/unit and/or counseling patient: Internal Medicine: Result - Labs CBC & Chem 7: 05/18/18 05:05 05/18/18 05:05 Labs: Short CBC 05/18/18 Range/Units 05:05 WBC 11.7 H (4.3-11.1) K/mcL Hgb 12.2 L (12.9-16.9) g/dL Hct 35.9 L (37.5-50.1) % Plt Count 311 (140-400) K/mcL Neutrophils # 8.3 (1.6-8.9) K/mcL BMP 05/18/18 05:05 Sodium 143 Potassium 3.5 Chloride 107 Carbon Dioxide 28 BUN 9 Creatinine 1.22 Glucose 122 H Calcium 8.9 - ABG Interpretation ABG results: PT/INR, D-dimer PT 13.3 Seconds (9.4-12.1) H 05/14/18 03:05 - Attending Attestation I examined this patient and my medical decision-making was reviewed with the Resident Physician on 05/17/18. I agree with the documented findings, disposition and treatment plan as described except to the extent set forth below. Mr Trevizo is currently admitted for acute cellulitis/abscess R foot s/p I&D. He remains moderate to high risk due to potential for worsening clinical status. Mr Trevizo feels OK. Foot has no new issues. Blood sugars high still (? if he is not following diet). No fever or chills. To have wound vac as outpatient. Exam Alert Comfortable Mucus membranes dry Heart reg No wheeze Abd soft Dressing intact I/P 1. Cellulitis - ID to see today 2. DM - sugars out of control. Levemir adjusted yesterday. Expect he is not following diet. Further diagnoses and plan as above. <Serenity Medina - Last Filed: 05/18/18 14:59> (2) Diabetes mellitus Qualifiers: Diabetes mellitus type: type 2 Diabetes mellitus terminal worker insulin use: without terminal worker use Diabetes mellitus complication status: with skin complications Diabetes mellitus complication detail: with foot ulcer Qualified Code(s): E11.621 - Type 2 diabetes mellitus with foot ulcer; L97.509 - Non- pressure chronic ulcer of other part of unspecified foot with unspecified severity <Praneeth Barker - Last Filed: 05/18/18 18:40> (2) Diabetes mellitus Qualifiers: Diabetes mellitus type: type 2 Diabetes mellitus detention insulin use: without detention use Diabetes mellitus complication status: with skin complications Diabetes mellitus complication detail: with foot ulcer Qualified Code(s): E11.621 - Type 2 diabetes mellitus with foot ulcer; L97.509 - Non-pressure chronic ulcer of other part of unspecified foot with unspecified severity
--- NOTE | 2018-05-18 14:02 | Podiatry Progress Note ---
Date of Encounter: 05/18/18 Time of Encounter: 12:55 - Assessment and Plan (1) Wound of foot Current Visit: Yes Status: Acute Large wound noted to right dorsal foot Measuring 2 inches wide x 3 inches long, Right foot dorsal wound with beefy red wound bed, slough noted. Applied Adaptic and wound VAC with black sponge at 125 mmHg Plan to change VAC --. Will need home care set up for wound VAC dressing changes. Wound culture from the showed staph aureus, awaiting sensitivity. Blood cultures negative, and anaerobic culture preliminary negative (2) Diabetes mellitus Current Visit: Yes Status: Chronic HGB A1c 9.9 Recommend tight glycemic control Patient started on levemir. Blood glucose 110s today. Primary following Qualifiers: Diabetes mellitus type: type 2 Diabetes mellitus mcc insulin use: without intermodal dispatcher use Diabetes mellitus complication status: with skin complications Diabetes mellitus complication detail: with foot ulcer Qualifi ed Code(s): E11.621 - Type 2 diabetes mellitus with foot ulcer; L97.509 - Non- pressure chronic ulcer of other part of unspecified foot with unspecified severity Subjective Principal diagnosis: foot infection Interval history: Patient awake alert oriented. Up sitting on side of bed eating lunch. Denies any pain, fevers, chills, nausea/vomiting/diarrhea. Denies any complications overnight. Objective - Vital Signs Vital Signs: Vital Signs Temp Pulse Resp BP Pulse Ox 05/18/18 10:14 98.4 F 72 16 151/89 95 05/18/18 07:14 98.9 F 75 15 134/79 96 05/18/18 04:17 98.9 F 78 17 145/90 95 05/18/18 00:10 97.9 F 88 17 153/83 92 05/17/18 19:37 98.4 F 77 17 122/78 94 05/17/18 15:00 98.2 F 65 16 124/79 98 Intake and Output 05/17/18 05/18/18 05/18/18 23:59 07:59 15:59 Intake Total 965 / 965 350 / 350 340 / 340 Output Total 0 / 0 Balance 965 / 965 350 / 350 340 / 340 Intake: IV Fluids 100 / 100 350 / 350 100 / 100 Zosyn 3.375 GM In 0.9 % Sodium 100 / 100 100 / 100 100 / 100 Chloride (Mini-Bag +) 100 ML @ 25 mls/hr IVPB Q8H [facility] Rx#: [id number] Vancocin 1,250 MG In 0.9 % 250 / 250 Sodium Chloride 250 ML @ 166.67 mls/hr IVPB Q12H [facility] Rx#: [id number] Oral 865 / 865 240 / 240 Output: Urine 0 / 0 Other: Meal Dinner Lunch Percent of Meal Consumed 70% 100% # Voids 1 1 Blood Glucose* 280 112 246 - Exam Exam: Constitiutional: Alert and oriented x 3. Vascular: 3/4 DP/PT bilaterally, CFT <3 sec to all digits, warm to warm from tibia to toes bilaterally, no edema noted. Neurologic: Positive light touch and pinprick test, normal plantar response, Normal position sense dorsiflexion/plantar flexion Dermatologic: Right foot dorsal wound with beefy red wound bed, slough noted. Musculoskeletal: 5/5 muscle strength and normal tone bilaterally. - Lab Result Diagrams: 05/18/18 05:05 05/18/18 05:05 Labs: Abnormal lab results WBC 11.7 K/mcL (4.3-11.1) H 05/18/18 05:05 Hgb 12.2 g/dL (12.9-16.9) L 05/18/18 05:05 Hct 35.9 % (37.5-50.1) L 05/18/18 05:05 PT 13.3 Seconds (9.4-12.1) H 05/14/18 03:05 APTT 37.0 Seconds (26.0-36.0) H 05/14/18 03:05 Glucose 122 mg/dL (70-105) H 05/18/18 05:05 POC Glucose 112 mg/dL (70-99) H 05/18/18 07:47 Hemoglobin A1c 9.9 % (-5.6) H 05/13/18 05:26 AST 10 Units/L (13-39) L 05/13/18 05:26 HDL Cholesterol 26 mg/dL (40-59) L 05/12/18 17:58 Urine Glucose (UA) 500 mg/dL (Normal) H 05/12/18 14:05 Urine Urobilinogen 2.0 mg/dL (Normal) H 05/12/18 14:05 Vancomycin Trough 22 mcg/mL (5-10) H 05/17/18 16:49 Microbiology, Last 48 Hours 05/15/18 17:05 Wound Culture - Preliminary Right Foot Staphylococcus aureus 05/15/18 17:05 Anaerobic Culture - Preliminary Right Foot At this time, no anaerobic growth is present. The culture will be finalized after 5 days of incubation. 05/15/18 17:05 Gram Stain - Final Right Foot 05/12/18 13:52 Blood Culture - Final Peripheral Venipuncture No growth. Final report. 05/12/18 13:52 Blood Culture - Final Peripheral Venipuncture No growth. Final report. Consult Discharge Plan - Plan Additional Instructions: Follow up with Dr. Afshin London 1 week after discharge in [facility]. Referrals: NONE,PCP [Primary Care Provider] -
[2018-05-18] MEDS ORDERED: Aminoglycoside Consult 1 EACH MC ONE (14:53)
--- NOTE | 2018-05-18 16:56 | Infectious Disease Consult ---
Date of Encounter: 05/18/18 Time of Encounter: 16:46 Assessment and Plan (1) Right foot infection Status: Acute Assessment and plan: Failed outpatient antibiotic treatment Causative organism Staphylococcus aureus susceptibility pending MRI 05/14/2018: Irregular elongated focal fluid collection in the superficial aspect of the dorsal foot with some internal gas compatible with abscess area associated cellulitis to the dorsal foot. I&D 05/15/2018: lot of necrotic nonviable tissue with underlying abscess that apparently was tracking distal and proximal lateral under the fascial plane Patient started on empiric antibiotic therapy including vancomycin and Zosyn Patient is a known fishermen I am not sure if he had fresh water exposure, await cultures to finalize. We will see if we can still order cultures for AFB Continue vancomycin with goal vancomycin trough of 15 Continue Zosyn Duration of treatment depends on the clinical picture but likely 2 weeks since no obvious osteomyelitis Once cultures finalize we will tailor antibiotics accordingly Monitor labs and for drug toxicity including weekly CBC, BMP, ESR and CRP Discussed with podiatry staff (2) Diabetes mellitus Status: Chronic Assessment and plan: Newly diagnosed Primary team to treat; currently on Levemir Need adequate glucose control for proper healing Qualifiers: Diabetes mellitus type: type 2 Diabetes mellitus employment supervisor insulin use: without intermediate use Diabetes mellitus complication status: with skin complications Diabetes mellitus complication detail: with foot ulcer Qualifi ed Code(s): E11.621 - Type 2 diabetes mellitus with foot ulcer; L97.509 - Non- pressure chronic ulcer of other part of unspecified foot with unspecified severity (3) Tobacco abuse Status: Chronic Assessment and plan: Recommend smoking cessation (4) Obesity (BMI 30.0-34.9) Status: Acute Infectious Disease HPI - Data of Consult Patient: new to practice Consult date: 05/18/18 Requesting Physician: Praneeth Barker DO Primary Care Provider: PCP NONE - Consult Narrative Reason for consult: Foot infection History of present illness: Mr. 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 Patient tells me that his symptoms started about 2 weeks prior to admission. He was in usual state of health when his leg got significantly more swollen. Patient states that there was significant swelling in his ankle on the right but there was really not much pain. Patient denied any fevers or chills or night sweats. Patient denies any rigors. Patient has cats at home but denies any animal bite. Denies any trauma. Further questioning patient apparently goes fishing frequently and he goes fishing and rafa and reverse. He denies ever walking barefoot. Patient never had any episodes like this before. Patient denies history of gout. Since admission to [facility], patient has been afebrile. But initially he was tachycardic. Presenting labs revealed a WBC of 10.8 thousand with normal differential and no bands. Chemistry was really nonrevealing. BUN of 10 and creatinine of 0.73. He had elevated glucose and he did not know he had diabetes mellitus. Patient's A1c was checked and it came back at 9.9 so newly diagnosed diabetes mellitus. Liver function was within normal limit and patient had no dyslipidemia. A urinalysis only showed glucosuria but no signs of infection. MRI of the right foot on 05/14/2018: Irregular elongated focal fluid collection in the superficial aspect of the d orsal foot with some internal gas compatible with abscess area associated cellulitis to the dorsal foot. Mild muscle edema without significant enhancement to intrinsic musculature of the foot, predominantly the intraosseous muscles above the second through fourth metatarsals. This may be reactive in nature or reflect nonspecific myositis. Early dinner patient changes could have similar appearance. 05/15/2018: Patient was taken by podiatry to the OR where he had incision and drainage below fascia of the right foot. Operation note reveals a lot of necrotic nonviable tissue with underlying abscess that apparently was tracking distal and proximal lateral under the fascial plane. Post debridement wound measures 6.54.20.3 cm. Intra-Op cultures are growing staph aureus with susceptibility pending. Patient has been on empiric vancomycin and Zosyn. We were asked to evaluate the patient think further recommendations. Currently patient sitting in bed and appears comfortable denies any complaints in review of systems really unremarkable. CC: Praneeth Barker, DO Past Med Surg Social Fam HX - Past Medical History Medical history: diabetes, other Additional medical history: MARSA Psychiatric history: no psych history - Past Surgical History Additional surgical history: thumb elbow - Social History Smoking Status: Current every day smoker Packs per day: 1/2 Smokeless Tobacco Status: No Alcohol use: none Drug use: none Infectious Disease-CN:Meds Cephalexin [Keflex] 500 mg PO QID #40 capsule 05/04/18 [Rx] Ibuprofen [Ibu-200] 400 mg PO Q6H PRN 05/04/18 [History] Ranitidine HCl [Acid Executive Secretary] 150 mg PO DAILY PRN 05/04/18 [History] Sulfamethoxazole/Trimeth DS [Bactrim DS] 1 tab PO BID 05/12/18 [History] Allergy/AdvReac Type Severity Reaction Status Date / Time No Known Allergies Allergy Verified 05/12/18 14:38 Review of systems: 10 point review of systems done, negative other for what is mentioned in history of present illness Exam - Constitutional Vitals: Temp Pulse Resp BP Pulse Ox 98.8 F 69 16 130/81 97 05/18/18 14:48 05/18/18 14:48 05/18/18 14:48 05/18/18 14:48 05/18/18 14:48 General appearance: cooperative, no acute distress, no febrile - Head Head exam: Present: normocephalic. Absent: atraumatic - Eye Eye exam: Present: EOMI, PERRL - ENT ENT exam: Present: mucous membranes moist, normal exam - Neck Neck exam: Present: full ROM. Absent: meningismus - Respiratory Respiratory exam: Present: CTAB. Absent: wheezes - Cardiovascular Cardiovascular exam: Present: RRR, +S1, +S2 - GI/Abdominal GI/Abdominal exam: Present: soft. Absent: tenderness - Extremities Exam Additional comments: Right lower extremity surgically wrapped - Neurological Exam Neurological exam: Present: alert, oriented X3 - Psychiatric Psychiatric exam: Present: normal affect, normal mood - Skin Skin exam: Present: normal color. Absent: rash Infectious Disease CN: Results - Labs CBC & Chem 7: 05/18/18 05:05 05/18/18 05:05 Cultures: Cultures 05/15/18 17:05 Wound Culture - Preliminary Right Foot Staphylococcus aureus 05/15/18 17:05 Anaerobic Culture - Preliminary Right Foot At this time, no anaerobic growth is present. The culture will be finalized after 5 days of incubation. 05/15/18 17:05 Gram Stain - Final Right Foot 05/12/18 13:52 Blood Culture - Final Peripheral Venipuncture No growth. Final report. 05/12/18 13:52 Blood Culture - Final Peripheral Venipuncture No growth. Final report. Serology: Serology 05/12/18 Range/Units 14:05 Urine Color Yellow (Yellow) Urine Clarity Clear (Clear) Urine pH 6.5 (5.0-8.0) pH Units Ur Specific [place] 1.020 (1.010-1.025) Urine Protein Negative (Neg-Trace) mg/dL Urine Glucose (UA) 500 H (Normal) mg/dL Urine Ketones Negative (Negative) mg/dL Urine Blood Negative (Negative) Urine Nitrite Negative (Negative) Urine Bilirubin Negative (Negative) Urine Urobilinogen 2.0 H (Normal) mg/dL Ur Leukocyte Esterase Negative (Negative) Ur Culture Indicated? NO (NO) Consult Discharge Plan - Plan Additional Instructions: Follow up with Dr. Afshin London 1 week after discharge in [facility]. Referrals: NONE,PCP [Primary Care Provider] -
[2018-05-19] MEDS: *HR* Heparin 5,000 UNIT/ML VIAL SQ SCH (04:31)
[2018-05-19] MEDS: Piperacillin/Tazobactam 3.375 GM in 0.9 % Sodium Chloride Mini Bag 100 ML IVPB SCH ×2 (04:31→11:58)
[2018-05-19 06:29] LABS: Basophils # 0.1 K/mcL (0.0-0.2); Basophils % 0.7 %; Eosinophils # 0.3 K/mcL (0.0-0.6); Eosinophils % 2.7 %; Hematocrit 34.9 % (37.5-50.1); Hemoglobin 11.9 g/dL (12.9-16.9); Immature Granulocytes % 0.4 % (0-4); Lymphocytes # 2.1 K/mcL (0.6-4.6); Lymphocytes % 20.7 %; Mean Corpuscular HGB Conc 34.1 g/dL (31.6-35.5); Mean Corpuscular Hemoglobin 28.8 pg (28.0-33.3); Mean Corpuscular Volume 84.5 fL (83.0-100.0); Mean Platelet Volume 10.2 fL (9.4-12.4); Monocytes # 0.9 K/mcL (0.0-1.3); Monocytes % 8.5 %; Neutrophils # 6.7 K/mcL (1.6-8.9); Platelet Count 332 K/mcL (140-400); Red Blood Count 4.13 M/mcL (4.19-5.50); Red Cell Distribution Width 11.9 % (11.5-14.5)
[2018-05-19 06:48] LABS: BUN/Creatinine Ratio 8 (6-26); Blood Urea Nitrogen 10 mg/dL (6-20); Calcium 8.9 mg/dL (8.6-10.3); Carbon Dioxide 27 mEq/L (23-29); Chloride 106 mEq/L (98-107); Glucose 137 mg/dL (70-105); Osmolality,Calculated 293 (280-300); Potassium 3.4 mEq/L (3.5-5.1); Sodium 141 mEq/L (136-145); eGFR For Non-African Americans > 60 (> 60)
[2018-05-19] MEDS: Insulin LISPRO 300 UNITS/3 ML VIAL SQ SCH ×2 (07:32→11:59)
--- NOTE | 2018-05-19 07:46 | Internal Med Progress Note ---
<Serenity Medina Santy - Last Filed: 05/19/18 13:04> Hospitalist Progress Note - Encounter Date of Encounter: 05/19/18 Time of Encounter: 07:43 - Subjective Interval History: 47M with PMH uncontrolled DM presenting with non-healing ulcer of dorsal aspect of R Foot, CT showed some SubQ air but not in fascial plane, admitted for IV Abx after failure of outpt mgmt. On Vanc and zosyn. WBC 10.8 at admit, 11.7 today. Had I&D with debridement on 05/15/18 and is being followed by podiatry. Podiatry changed dressing yesterday and omaira'd wound vac - awaiting approval through medicare. Cultures are pending. Awaiting recommendation from ID for oral antibiotic choice. Glucose control remains an issue, with values ranging 118-280 over the weekend. Pt was switched from high sliding scale to low sliding scale, and Levemir is at 12 units BID. It may be unrealistic to attain complete glucose control during this admission, but goal sugars are <180. Close outpatient follow-up with referral to residency clinic is recommended. Will discharge on Levemir with testing supplies and glucometer. No acute events overnight. Nausea resolved. - Exam Vitals: Temp Pulse Resp BP Pulse Ox 98.2 F 68 14 133/84 93 05/19/18 07:19 05/19/18 07:19 05/19/18 07:19 05/19/18 07:19 05/19/18 07:19 Exam: General: A&O x 3. No acute distress. Well developed, well nourished Obese male Head: atraumatic, normocephalic. ENT: No conjunctival injection, no scleral icterus. PERRLA. EOMI. Oropharynx non- erythematous. mucous membranes moist. Neuro: No focal deficits, no speech deficit, no facial droop, mentating well. Pulm: Lungs CTAB A/P. No wheezes, rales, ronchi. Cardio: RRR no m/r/g. Chest not tender to palpation. Abd: Soft, non-distended. Normoactive bowel sounds. Tender to palpation in areas where he has been receiving heparin shots - BLQ. No guarding. Non rigid. Extremities:Rt foot bandaged recently by podiatry, wound vac present, left extremity without wounds, edema, erythema Skin: warm, dry, intact. No rashes with exception of right foot wound Psych: Appropriate mood and affect. Answers questions appropriately. Cooperative with exam. - Assessment and Plan (1) Wound of foot Status: Acute Assessment and Plan: - s/p day 4 after I&D with debridement 05/15 - followed by podiatry who omaira'd wound vac - awaiting medicare approval - IV Zosyn & Vancomycin - Cultures showed MRSA - ID following, will make oral Abx omaira for goal 2 week of treatment (2) Diabetes mellitus Status: Chronic Assessment and Plan: -Pts a1c at admission was 9.9 - 12mg Levemir BID - Low dose correction scale to avoid hypoglycemia - goal sugars 100-180 - close outpatient follow-up with referral to residency clinic to establish DVT Prophylaxis: heparin 5000u SQ Q12 - Time Spent with Patient Total time spent is greater than 50% in coordination of care (as documented) at patient's floor/unit and/or counseling patient: less than 15 minutes Plan of Care Discussed with: patient Internal Medicine: Result - Labs CBC & Chem 7: 05/19/18 05:47 05/19/18 05:47 Labs: Short CBC 05/19/18 Range/Units 05:47 WBC 10.0 (4.3-11.1) K/mcL Hgb 11.9 L (12.9-16.9) g/dL Hct 34.9 L (37.5-50.1) % Plt Count 332 (140-400) K/mcL Neutrophils # 6.7 (1.6-8.9) K/mcL BMP 05/19/18 05:47 Sodium 141 Potassium 3.4 L Chloride 106 Carbon Dioxide 27 BUN 10 Creatinine 1.20 Glucose 137 H Calcium 8.9 - ABG Interpretation ABG results: PT/INR, D-dimer PT 13.3 Seconds (9.4-12.1) H 05/14/18 03:05 Consult Discharge Plan - Plan Instructions: Cellulitis (DC) Additional Instructions: Follow up with Dr. Afshin London 1 week after discharge in [facility]. Referrals: Afshin London DPM [Partnered Physician] - 05/26/18 10:30 am Yahir Fontana [Resident] - 05/22/18 4:00 pm Prescriptions: Insulin DETEMIR [Levemir Flextouch] 12 unit SQ BID #1 insuln.pen Sulfamethoxazole/Trimeth DS [Bactrim Ds] 1 tab PO BID #18 tablet <Aislinn Candelaria - Last Filed: 05/20/18 07:31> Hospitalist Progress Note - Exam Vitals: Temp Pulse Resp BP Pulse Ox 97.3 F L 93 16 145/91 96 05/19/18 13:13 05/19/18 13:13 05/19/18 13:13 05/19/18 13:13 05/19/18 13:13 - Assessment and Plan (1) Wound of foot Status: Acute (2) Diabetes mellitus Status: Chronic (3) Cellulitis of right foot Status: Acute (4) Tobacco abuse Status: Chronic (5) Obesity (BMI 30.0-34.9) Status: Acute - Time Spent with Patient Total time spent is greater than 50% in coordination of care (as documented) at patient's floor/unit and/or counseling patient: Internal Medicine: Result - Labs CBC & Chem 7: 05/19/18 05:47 05/19/18 05:47 - ABG Interpretation ABG results: PT/INR, D-dimer PT 13.3 Seconds (9.4-12.1) H 05/14/18 03:05 - Attending Attestation I examined this patient and my medical decision-making was reviewed with the Resident Physician Dr Medina. I agree with the documented findings, disposition and treatment plan as described except to the extent set forth below/addl details below Mr Trevizo was admitted for acute cellulitis/abscess R foot s/p I&D by podiatry. Cultures grew MRSA and ID followed along this admission. He is being dc to home with home RN for wound vac changes and oral abx as per ID recs. He was started on insulin this admission given his A1C 9.9 with dose uptitrated for better glucose control. He will dc to home with diabetic supplies and levemir. awake, no complaints, denies pain, n/v, fevers/chills. eager for dc to home. gen- alert, awake,appears stated age eyes- pupils equal round cv- reg rate and rhythm, normal s1,s2, no murmurs appreciated, no le edema lungs- ctabl, no wheezing, rhonchi or crackles, normal resp effort on ra neuro- AAOx3 skin- right foot dressing c/d/i A/P 1. Cellulitis/Wound Right Foot - s/p I&D, cxs reviewed, + MRSA and sensitivities reviewed, Podiatry will see outpt, ID rec for bactrim DS on dc, wound vac with HHC lined up 2. DM uncontrolled - cont current levemir dose on dc, fu outpt, rxs provided and levemir rivers checked prior to prescribing, diabetic supplies rx and education provided this admission Further diagnoses and plan as noted by resident <Serenity Medina - Last Filed: 05/19/18 13:04> (2) Diabetes mellitus Qualifiers: Diabetes mellitus type: type 2 Diabetes mellitus detention insulin use: without detention use Diabetes mellitus complication status: with skin complications Diabetes mellitus complication detail: with foot ulcer Qualified Code(s): E11.621 - Type 2 diabetes mellitus with foot ulcer; L97.509 - Non- pressure chronic ulcer of other part of unspecified foot with unspecified severity <Aislinn Candelaria - Last Filed: 05/20/18 07:31> (2) Diabetes mellitus Qualifiers: Diabetes mellitus type: type 2 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
[2018-05-19] MEDS: Insulin DETEMIR 100 UNIT/ML X5UNITS SQ SCH (09:05)
--- NOTE | 2018-05-19 13:09 | Discharge Summary ---
<Serenity Medina - Last Filed: 05/19/18 13:54> - NOTES TO OUTPATIENT PROVIDER Notes to Outpatient Provider: 1. Pts a1c was 9.9 at admit, placed on 10mg Levemir BID + low dose correction schedule, d/c with Levemir BID. Insulin naive prior to admission, glucose control remained challenging as inpatient with ranges 110-280s. 2. Pt has home health nurse to assist with wound vac/dressing on R Foot. 3. Pt will need diabetes education/management. 4. Pt received Bactrim DS as outpatient for a total of 14 days coverage. Podiatry can manage further antibiotics, but ID is open to being consulted if Podiatry feels that is necessary. Orders not resulted at time of discharge: Pending orders 05/15/18 17:05 Culture,Anaerobic [RM] Routine 05/20/18 04:00 BMP [Basic Metabolic Panel] AM 0400 Complete Blood Count [HEME] AM 0400 Date of Encounter: 05/19/18 Time of Encounter: 13:07 - Discharge Diagnosis (1) Wound of foot Priority: Primary Status: Acute Assessment and Plan: Pt failed outpt mgmt on oral Abx, admitted for IV Abx, I&D with debridement on 05/15/18. Wound vac placed 05/18/18. D/c home with 9 more days of antibiotics - Bactrim DO BID - and home health as well as portable wound vac and podiatry f/u. Cautioned pt that glucose control will help avoid similar infections in the future. (2) Diabetes mellitus Priority: Secondary Status: Chronic Assessment and Plan: Pt dx with T2DM several years ago, lost 100# and has not checked sugars since, does not follow/have PCP. Found to have A1c of 9.9 at admission, insulin naive, placed on Levemir BID and low dose correction scale. Sugars remained 110s-280s during admission, will discharge with testing supplies and Levemir BID, as well as outpt referral to [facility] and recommendation for close outpt follow- up. Qualifiers: Diabetes mellitus type: type 2 Diabetes mellitus alf insulin use: without alf use Diabetes mellitus complication status: with skin comp lications Diabetes mellitus complication detail: with foot ulcer Qualified Code(s): E11.621 - Type 2 diabetes mellitus with foot ulcer; L97.509 - Non- pressure chronic ulcer of other part of unspecified foot with unspecified severity Hospital course: Mr. Trevizo is a 47 year old male Discharge discussed with: patient Time spent discussing smoking cessation with patient: 3 to 10 minutes - Time Spent with Patient Total time spent providing and/or coordinating discharge services: Less than 30 minutes - Discharge Medications Prescriptions: Insulin DETEMIR [Levemir Flextouch] 12 unit SQ BID #1 insuln.pen Sulfamethoxazole/Trimeth DS [Bactrim Ds] 1 tab PO BID #18 tablet Home Medications: Ibuprofen [Ibu-200] 400 mg PO Q6H PRN 05/04/18 [History] Ranitidine HCl [Acid Repairer Kiln Car] 150 mg PO DAILY PRN 05/04/18 [History] Insulin DETEMIR [Levemir Flextouch] 12 unit SQ BID #1 insuln.pen 05/19/18 [Rx] Sulfamethoxazole/Trimeth DS [Bactrim Ds] 1 tab PO BID #18 tablet 05/19/18 [Rx] Allergies/Adverse Reactions: Allergy/AdvReac Type Severity Reaction Status Date / Time No Known Allergies Allergy Verified 05/12/18 14:38 Date of admission: 05/12/18 18:50 Primary care physician: PCP NONE Consults: 05/12/18 17:08 Consult to Podiatry [CONS] Routine Consulting Provider: [facility] Reason for Consult: foot wound Call Completed: Yes 05/13/18 09:26 Consult to Diabetes Education [CONS] Routine Comment: Reason for Consult: Pt with T2DM not on any medications without primary care physician 05/13/18 20:31 consult to pet care attendant [Consult to Nutrition] [CONS] Routine Comment: Consulting Provider: NUTRITION Reason for Dietary Consult: Diet Education PO Supplementation Other:: PT is diabetic 05/18/18 10:20 Consult to Infectious Diseases [CONS] Routine Consulting Provider: [facility] Reason for Consult: Foot infection Time Notified: 10:20 Call Completed: Yes 05/18/18 14:10 Consult to Insulation Board Head Saw Operator [CONS] Routine Reason for SW Consult: wound vac, home care - Constitutional Vitals: Temp Pulse Resp BP Pulse Ox 98.2 F 68 14 133/84 93 05/19/18 07:19 05/19/18 07:19 05/19/18 07:19 05/19/18 07:19 05/19/18 07:19 General appearance: Present: A&O X 3 Exam: General: A&O x 3. No acute distress. Well developed, well nourished Obese male Head: atraumatic, normocephalic. ENT: No conjunctival injection, no scleral icterus. PERRLA. EOMI. Oropharynx non- erythematous. mucous membranes moist. Neuro: No focal deficits, no speech deficit, no facial droop, mentating well. Pulm: Lungs CTAB A/P. No wheezes, rales, ronchi. Cardio: RRR no m/r/g. Chest not tender to palpation. Abd: Soft, non-distended. Normoactive bowel sounds. Tender to palpation in areas where he has been receiving heparin shots - BLQ. No guarding. Non rigid. Extremities:Rt foot bandaged recently by podiatry, wound vac present, left extremity without wounds, edema, erythema Skin: warm, dry, intact. No rashes with exception of right foot wound Psych: Appropriate mood and affect. Answers questions appropriately. Cooperative with exam. - Patient Status Disposition: Home, Self-Care Condition: Good Overall status at discharge: patient is progressing back to baseline - Discharge Instructions Instructions: Cellulitis (DC) Follow Up With: Afshin London DPM [Partnered Physician] - 05/26/18 10:30 am Yahir Fontana [Resident] - 05/22/18 4:00 pm Additional Instructions: Follow up with Dr. Afshin London 1 week after discharge in [facility]. - Diet and Activity Activity: other (follow recommendations from Podaitry) Diet: diabetic diet <Aislinn Candelaria - Last Filed: 05/19/18 15:20> Orders not resulted at time of discharge: Pending orders 05/15/18 17:05 Culture,Anaerobic [RM] Routine - Discharge Diagnosis (1) Wound of foot Status: Acute (2) Diabetes mellitus Status: Chronic Qualifiers: Diabetes mellitus type: type 2 Diabetes mellitus superintendent marine oil terminal insulin use: without alf use Diabetes mellitus complication status: with skin complications Diabetes mellitus complication detail: with foot ulcer Quali fied Code(s): E11.621 - Type 2 diabetes mellitus with foot ulcer; L97.509 - Non- pressure chronic ulcer of other part of unspecified foot with unspecified severity (3) Cellulitis of right foot Status: Acute (4) Tobacco abuse Status: Chronic (5) Obesity (BMI 30.0-34.9) Status: Acute Hospital course: Mr. Trevizo is a 47 year old male with PMH uncontrolled DM presenting with non- healing ulcer of dorsal aspect of R Foot, CT showed some SubQ air but not in fascial plane, admitted for IV Abx after failure of outpt mgmt. On Vanc and zosyn while inpt. WBC 11.9 max and down to wnl at dc. Had I&D with debridement on 05/15/18 and was followed by podiatry. Podiatry recommended wound vac and SW assisted in setting up home RN with wound vac and vac changes as per podiatry recs. Cxs grew MRSA with sensitivities resulted at time of dc. ID followed pt and gave outpt rec for Bactrim for addl 9 days of treatment at time of DC. Glucose control was an issue throughout admission, with values ranging 118-280 over the weekend. Pt was switched from high sliding scale to low sliding scale, and Levemir was started and uptitrated to 12 units BID this admit as glucose control will be imperative to his healing. Diabetic and insulin education provided to pt and rxs for all supplies were given on dc. - Time Spent with Patient Total time spent providing and/or coordinating discharge services: Less than 30 minutes Date of admission: 05/12/18 18:50 Primary care physician: PCP NONE Consults: 05/12/18 17:08 Consult to Podiatry [CONS] Routine Consulting Provider: [facility] Reason for Consult: foot wound Call Completed: Yes 05/13/18 09:26 Consult to Diabetes Education [CONS] Routine Comment: Reason for Consult: Pt with T2DM not on any medications without primary care physician 05/13/18 20:31 consult to pet care attendant [Consult to Nutrition] [CONS] Routine Comment: Consulting Provider: NUTRITION Reason for Dietary Consult: Diet Education PO Supplementation Other:: PT is diabetic 05/18/18 10:20 Consult to Infectious Diseases [CONS] Routine Consulting Provider: [facility] Reason for Consult: Foot infection Time Notified: 10:20 Call Completed: Yes 05/18/18 14:10 Consult to Insulation Board Head Saw Operator [CONS] Routine Reason for SW Consult: wound vac, home care - Constitutional Vitals: Temp Pulse Resp BP Pulse Ox 97.3 F L 93 16 145/91 96 05/19/18 13:13 05/19/18 13:13 05/19/18 13:13 05/19/18 13:13 05/19/18 13:13 - Diet and Activity Activity: other (follow recommendations from Podaitry- non weight bearing right lower extremity) Diet: diabetic diet - Attending Attestation I examined this patient and my medical decision-making was reviewed with the Resident Physician Dr Medina. I agree with the documented findings, disposition and treatment plan as described except to the extent set forth below/addl details below Mr Trevizo was admitted for acute cellulitis/abscess R foot s/p I&D by podiatry. Cultures grew MRSA and ID followed along this admission. He is being dc to home with home RN for wound vac changes and oral abx as per ID recs. He was started on insulin this admission given his A1C 9.9 with dose uptitrated for better glucose control. He will dc to home with diabetic supplies and levemir. awake, no complaints, denies pain, n/v, fevers/chills. eager for dc to home. gen- alert, awake,appears stated age eyes- pupils equal round cv- reg rate and rhythm, normal s1,s2, no murmurs appreciated, no le edema lungs- ctabl, no wheezing, rhonchi or crackles, normal resp effort on ra neuro- AAOx3 skin- right foot dressing c/d/i A/P 1. Cellulitis/Wound Right Foot - s/p I&D, cxs reviewed, + MRSA and sensitivities reviewed, Podiatry will see outpt, ID rec for bactrim DS on dc, wound vac with HHC lined up 2. DM uncontrolled - cont current levemir dose on dc, fu outpt, rxs provided and levemir rivers checked prior to prescribing, diabetic supplies rx and education provided this admission Further diagnoses and plan as noted by resident Addendum entered and electronically signed by Aislinn Candelaria, 05/19/18 17:42: Intermittently elevated BP this admit, will require fu with PCP on dc for further management and monitoring
[2018-05-19 13:15] VITALS: BP 145/91
--- NOTE | 2018-05-19 13:17 | Physician Discharge Referral ---
<Serenity Medina - Last Filed: 05/19/18 13:15> Home Health/Hosp Referral Info Transfer to: Home Health Attending Provider: Nursing Provider in Charge Post Discharge: Other (Nursing) - Diagnosis (1) Wound of foot Priority: Primary Status: Acute (2) Diabetes mellitus Priority: Secondary Status: Chronic - Respiratory Orders Smoking Cessation: Smoking cessation has been advised. For more information, call the [employer] Quit Line at 4-351-XJQH-NOW. - Dressing/Wound Care Site: Right Foot Type of Dressing/Treatments w/Frequency: Wound vac/dressing management - Services Needed Following services are medically necessary services: Nursing - Transfer Medications Prescriptions: Insulin DETEMIR [Levemir Flextouch] 12 unit SQ BID #1 insuln.pen Sulfamethoxazole/Trimeth DS [Bactrim Ds] 1 tab PO BID #18 tablet Home Medications: Ibuprofen [Ibu-200] 400 mg PO Q6H PRN 05/04/18 [History] Ranitidine HCl [Acid Electron Beam Photo Mask Maker] 150 mg PO DAILY PRN 05/04/18 [History] Insulin DETEMIR [Levemir Flextouch] 12 unit SQ BID #1 insuln.pen 05/19/18 [Rx] Sulfamethoxazole/Trimeth DS [Bactrim Ds] 1 tab PO BID #18 tablet 05/19/18 [Rx] Allergies/Adverse Reactions: Allergy/AdvReac Type Severity Reaction Status Date / Time No Known Allergies Allergy Verified 05/12/18 14:38 Certification: Further, I certify that my clinical findings support that this patient is homebound (i.e. absences from home require considerable and taxing effort and are for medical reasons or mu-ism services or infrequently or short duration when for other reasons) because: Homebound Reason: Post-surgery restriction and or conditions limit ability to leave home Attestation: My signature below is to certify that this patient is under my care and that I, or nurse practitioner, or a physician's reproductive healthcare assistant working with me, has a gdgs-ml-bohl encounter with this patient. <Aislinn Candelaria - Last Filed: 05/19/18 15:08> Home Health/Hosp Referral Info Transfer to: Home Health Provider in Charge Post Discharge: PCP - Respiratory Orders None Smoking Cessation: Smoking cessation has been advised. For more information, call the [place] [employer] Quit Line at 8-299-KLRW-NOW. - Diet/Nutrition Diet/Nutrition Orders: No Concentrated Sweets - Activity Activity: List: non weight bearing right lower extremity - Services Needed Following services are medically necessary services: Nursing Certification: Further, I certify that my clinical findings support that this patient is homebound (i.e. absences from home require considerable and taxing effort and are for medical reasons or mu-ism services or infrequently or short duration when for other reasons) because: Attestation: My signature below is to certify that this patient is under my care and that I, or nurse practitioner, or a physician's reproductive healthcare assistant working with me, has a aubm-vc-hyxh encounter with this patient.
--- NOTE | 2018-05-19 13:36 | Infectious Disease Progress No ---
Date of Encounter: 05/19/18 Time of Encounter: 12:10 - Assessment and Plan (1) Right foot infection Status: Acute Failed outpatient antibiotic treatment. Causative organism; MRSA MRI 05/14/2018: Irregular elongated focal fluid collection in the superficial aspect of the dorsal foot with some internal gas compatible with abscess area associated cellulitis to the dorsal foot. I&D 05/15/2018: lot of necrotic nonviable tissue with underlying abscess that apparently was tracking distal and proximal lateral under the fascial plane. Patient started on empiric antibiotic therapy including vancomycin and Zosyn Patient is a known fishermen I am not sure if he had fresh water exposure, await cultures to finalize. We will see if we can still order cultures for AFB. Spoke with micro lab and they are able to add the test on. Continue vancomycin IV. Pharmacy to dose. Goal trough ~15. Discontinue Zosyn. Duration of treatment depends on the clinical picture, but likely a total of 14 days from the date of surgery since no obvious osteomyelitis. Discussed with Podiatry. Feel that the patient has improved since surgery and can be discharged on oral antibiotics. Can transition to oral Bactrim DS 1 tab by mouth twice a day to complete the course of treatment. Treatment through 05/29/18. Monitor renal function for drug toxicity and dose adjust antibiotics. (2) Diabetes mellitus Status: Chronic Newly diagnosed. Primary team to treat; currently on Levemir. Recommend aggressive glucose monitoring and control to promote wound healing and prevent reinfection. Management per the primary team. 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 No acute events noted overnight. Patient states ov erall he feels well and wants to go home. Denies any fevers or chills or rigors. Denies chest pain, shortness breath, or cough. Denies nausea, vomiting, diarrhea, constipation. Denies abdominal pain or urinary complaints. Denies any oral thrush and no skin lesions. Reports minimal pain in the surgical site. Infect Dis PN-Objective Data - Labs CBC & Chem 7: 05/19/18 05:47 05/19/18 05:47 Labs: Laboratory Results - last 24 hr 05/18/18 05/19/18 05/19/18 20:29 05:47 05:47 WBC 10.0 RBC 4.13 L Hgb 11.9 L Hct 34.9 L MCV 84.5 MCH 28.8 MCHC 34.1 RDW 11.9 Plt Count 332 MPV 10.2 Immature Gran % 0.4 Seg Neutrophils % 67.0 Lymphocytes % 20.7 Monocytes % 8.5 Eosinophils % 2.7 Basophils % 0.7 Neutrophils # 6.7 Lymphocytes # 2.1 Monocytes # 0.9 Eosinophils # 0.3 Basophils # 0.1 Sodium 141 Potassium 3.4 L Chloride 106 Carbon Dioxide 27 BUN 10 Creatinine 1.20 Est GFR ( Amer) > 60 Est GFR (Non-Af Amer) > 60 BUN/Creatinine Ratio 8 Glucose 137 H POC Glucose 253 H Calculated Osmolality 293 Calcium 8.9 05/19/18 05/19/18 07:16 11:40 WBC RBC Hgb Hct MCV MCH MCHC RDW Plt Count MPV Immature Gran % Seg Neutrophils % Lymphocytes % Monocytes % Eosinophils % Basophils % Neutrophils # Lymphocytes # Monocytes # Eosinophils # Basophils # Sodium Potassium Chloride Carbon Dioxide BUN Creatinine Est GFR ( Amer) Est GFR (Non-Af Amer) BUN/Creatinine Ratio Glucose POC Glucose 138 H 232 H Calculated Osmolality Calcium Cultures: Cultures 05/15/18 17:05 Wound Culture - Final Right Foot Methicillin Resistant S.aureus 05/15/18 17:05 Anaerobic Culture - Preliminary Right Foot At this time, no anaerobic growth is present. The culture will be finalized after 5 days of incubation. 05/15/18 17:05 Gram Stain - Final Right Foot 05/12/18 13:52 Blood Culture - Final Peripheral Venipuncture No growth. Final report. 05/12/18 13:52 Blood Culture - Final Peripheral Venipuncture No growth. Final report. Serology 05/12/18 Range/Units 14:05 Urine Color Yellow (Yellow) Urine Clarity Clear (Clear) Urine pH 6.5 (5.0-8.0) pH Units Ur Specific [place] 1.020 (1.010-1.025) Urine Protein Negative (Neg-Trace) mg/dL Urine Glucose (UA) 500 H (Normal) mg/dL Urine Ketones Negative (Negative) mg/dL Urine Blood Negative (Negative) Urine Nitrite Negative (Negative) Urine Bilirubin Negative (Negative) Urine Urobilinogen 2.0 H (Normal) mg/dL Ur Leukocyte Esterase Negative (Negative) Ur Culture Indicated? NO (NO) Exam - Constitutional Vitals: Temp Pulse Resp BP Pulse Ox 97.3 F L 93 16 145/91 96 05/19/18 13:13 05/19/18 13:13 05/19/18 13:13 05/19/18 13:13 05/19/18 13:13 General appearance: average body habitus, cooperative, no acute distress - Head Head exam: Present: atraumatic, normal inspection, normocephalic - Eye Eye exam: Present: EOMI, normal appearance, PERRL Pupils: Present: normal accommodation - ENT ENT exam: Present: mucous membranes moist - Neck Neck exam: Present: normal inspection - Respiratory Respiratory exam: Present: CTAB. Absent: rales, respiratory distress, rhonchi, wheezes - Cardiovascular Cardiovascular exam: Present: RRR, +S1, +S2 - GI/Abdominal GI/Abdominal exam: Present: normal bowel sounds, soft. Absent: distended, tenderness - Extremities Exam Extremities exam: Absent: joint swelling, normal inspection (Right foot wound VAC dressing noted without leak with scant serous drainage noted in the wound VAC canister. Overlying gauze dressing is clean, dry, and intact. No erythema, warmth, tenderness noted beyond the edges of the dressing.), pedal edema, ten derness - Neurological Exam Neurological exam: Present: alert, oriented X3, no focal deficits - Psychiatric Psychiatric exam: Present: normal affect, normal mood - Skin Skin exam: Present: dry, intact, normal color, warm Consult Discharge Plan - Plan Instructions: Cellulitis (DC) Additional Instructions: Follow up with Dr. Afshin London 1 week after discharge in [facility]. Referrals: Afshin London DPM [Partnered Physician] - 05/26/18 10:30 am Yahir Fontana [Resident] - 05/22/18 4:00 pm Prescriptions: Insulin DETEMIR [Levemir Flextouch] 12 unit SQ BID #1 insuln.pen RX: Sulfamethoxazole/Trimeth DS [Bactrim Ds] 1 tab PO BID #18 tablet - Attending Attestation I examined this patient and my medical decision-making was reviewed with the Resident Physician. I agree with the documented findings, disposition and treatment plan as described except to the extent set forth below.
== END 2018-05-19 14:54 | disposition home or self-care (01) | DRG 380 ==
LOC: EMEROOARM 11:49 → 3NENU 11:49 → SUATTDRO 18:50 → 3NENU 19:01 → 3ANU 05-18 09:53
PROVIDERS: ADMIT Internal Medicine Nephrology; ATTEND Internal Medicine